=== PATIENT | male | born 1950 | race Caucasian/White ===

== ENCOUNTER 2020-06-08 06:10 | Outpatient (REF) | payer MEDICARE, OTHER, SELFPAY ==
[2020-06-08 07:17] LABS: MANUAL DIFF FLAG NO
[2020-06-08 07:21] LABS: Basophils Percent Auto 0.9 % (0-2); Eosinophils Absolute Auto 0.4 X10*3/uL (0.0-0.4); Eosinophils Percent Auto 8.3 % (0-4); Hematocrit 46.3 % (42-52); Imm Gran Abs Auto 0.01 X10*3/uL (0.00-0.03); Imm Gran Pct Auto 0.2 % (0.0-0.4); Lymphocytes Absolute Auto 1.4 X10*3/uL (1.2-4.9); Lymphocytes Percent Auto 29.8 % (20-40); Mean Corpuscular HGB Conc 32.4 g/dl (31.0-36.0); Mean Corpuscular Hemoglobin 29.2 pg (27.0-33.0); Mean Corpuscular Volume 90.3 fL (80-98); Mean Platelet Volume 10.5 fL (9.4-12.4); Monocytes Absolute Auto 0.6 X10*3/uL (0.1-1.2); Monocytes Percent Auto 13.1 % (2-11); Neutrophils Absolute Auto 2.2 X10*3/uL (2.0-8.3); Neutrophils Percent Auto 47.7 % (45-73); Platelet Count 222 X10*3/uL (160-400); Red Blood Count 5.13 X10*6/uL (4.60-5.80); Red Cell Distribution Width 12.3 % (11.0-16.0); White Blood Count 4.6 X10*3/uL (4.8-10.8)
[2020-06-08 07:49] LABS: Alanine Aminotransferase 19 U/L (0-40); Albumin Level 3.9 g/dL (3.5-5.0); Alkaline Phosphatase 73 U/L (39-117); Anion Gap 10 (12-20); Aspartate Amino Transferase 26 U/L (5-37); Bilirubin Total 0.5 mg/dL (0.0-1.0); Blood Urea Nitrogen 18 mg/dL (9-16); Calcium 8.7 mg/dL (8.4-10.2); Carbon Dioxide 31 mmol/L (22-29); Chloride 102 mmol/L (96-108); Cholesterol 241 mg/dL; Estimated Glomerular Filt Rate > 60; Glucose Fasting 95 mg/dL (60-99); HDL Cholesterol 70 mg/dL; LDL Cholesterol Calculated 160 mg/dl; Potassium 4.3 mmol/L (3.3-5.1); Sodium 139 mmol/L (135-145); Total Protein 6.6 g/dL (6.5-8.0); Triglycerides 56 mg/dL
[2020-06-08 08:12] LABS: Prostate Specific Antigen Scr 2.55 ng/mL (<0.05-4.0)
== END 2020-06-08 06:11 | disposition home or self-care (01) ==
LOC: HO.LAB 06:10
PROVIDERS: Visit Provider Internal Medicine
DX: Z00.00 Encounter for general adult medical examination without abnormal findings (principal); E11.9 Type 2 diabetes mellitus without complications; R35.1 Nocturia
CPT/HCPCS: 36415; 80053; 80061; 84153; 85025

== ENCOUNTER 2021-06-07 06:12 | Outpatient (REF) | payer MEDICARE, OTHER, SELFPAY ==
[2021-06-07 06:30] LABS: MANUAL DIFF FLAG NO
[2021-06-07 07:19] LABS: Basophils Percent Auto 0.8 % (0-2); Eosinophils Absolute Auto 0.4 X10*3/uL (0.0-0.4); Eosinophils Percent Auto 7.9 % (0-4); Hematocrit 44.9 % (42.0-52.0); Hemoglobin 14.6 g/dl (14.0-18.0); Imm Gran Abs Auto 0.01 X10*3/uL (0.00-0.03); Imm Gran Pct Auto 0.2 % (0.0-0.4); Lymphocytes Absolute Auto 1.4 X10*3/uL (1.2-4.9); Lymphocytes Percent Auto 29.3 % (20-40); Mean Corpuscular HGB Conc 32.5 g/dl (31.0-36.0); Mean Corpuscular Hemoglobin 29.2 pg (27.0-33.0); Mean Corpuscular Volume 89.8 fL (80.0-98.0); Mean Platelet Volume 10.7 fL (9.4-12.4); Monocytes Absolute Auto 0.7 X10*3/uL (0.1-1.2); Monocytes Percent Auto 13.8 % (2-11); Neutrophils Absolute Auto 2.3 x10*3/uL (2.0-8.3); Platelet Count 217 X10*3/uL (160-400); Red Cell Distribution Width 12.5 % (11.0-16.0); White Blood Count 4.8 X10*3/uL (4.8-10.8)
[2021-06-07 07:48] LABS: Alanine Aminotransferase 15 U/L (0-40); Albumin Level 3.7 g/dL (3.5-5.0); Alkaline Phosphatase 66 U/L (39-117); Anion Gap 8 (12-20); Aspartate Amino Transferase 23 U/L (5-37); Bilirubin Total 0.6 mg/dL (0.0-1.0); Blood Urea Nitrogen 20 mg/dL (9-16); Calcium 9.1 mg/dL (8.4-10.2); Carbon Dioxide 32 mmol/L (22-29); Chloride 103 mmol/L (96-108); Cholesterol 215 mg/dL; Estimated Glomerular Filt Rate > 60; Glucose Fasting 93 mg/dL (60-99); HDL Cholesterol 55 mg/dL; LDL Cholesterol Calculated 148 mg/dl; Potassium 4.3 mmol/L (3.3-5.1); Sodium 139 mmol/L (135-145); Total Protein 6.2 g/dL (6.5-8.0); Triglycerides 61 mg/dL
[2021-06-07 08:12] LABS: Thyroid Stimulating Hormone 2.31 uIU/mL (0.32-4.0)
== END 2021-06-07 06:13 | disposition home or self-care (01) ==
LOC: HO.LAB 06:12
PROVIDERS: PCP Internal Medicine; Visit Provider Internal Medicine
DX: Z00.00 Encounter for general adult medical examination without abnormal findings (principal); Z13.0 Encounter for screening for diseases of the blood and blood-forming organs and certain disorders involving the immune mechanism; Z12.5 Encounter for screening for malignant neoplasm of prostate
CPT/HCPCS: 36415; 80053; 80061; 84153; 84443; 85025

== ENCOUNTER 2022-05-01 09:08 | Outpatient (REF) | payer MEDICARE, OTHER, SELFPAY ==
--- NOTE | ~2022-05-01 | XR_ITS ---
EXAMINATION: XR CHEST CLINICAL INFORMATION: Cough. COMPARISON: Chest radiograph 06/18/2017. TECHNIQUE: 2 views of the chest were obtained. FINDINGS: Stable appearance of the cardiomediastinal silhouette. Increased focal haziness in the medial right lower lobe abutting the cardiomediastinal silhouette. No pleural effusion or pneumothorax. Stable mild biapical subpleural thickening/scarring. No acute osseous abnormalities. The visualized upper abdomen is within normal limits. XR/XR chest 2V IMPRESSION: Increased focal haziness in the medial right lower lobe which could be related with aspiration or developing pneumonia. Recommend a follow-up examination after treatment to ensure resolution.
== END 2022-05-01 09:09 | disposition home or self-care (01) ==
LOC: HO.XRAY 09:08
PROVIDERS: PCP Internal Medicine; Visit Provider Internal Medicine
DX: R05.9 Cough, unspecified (principal)
CPT/HCPCS: 71046

== ENCOUNTER 2022-06-18 06:02 | Outpatient (REF) | payer MEDICARE, OTHER, SELFPAY ==
[2022-06-18 06:09] LABS: MANUAL DIFF FLAG NO
[2022-06-18 07:44] LABS: Basophils Absolute Auto 0.1 X10*3/uL (0.0-0.2); Basophils Percent Auto 1.4 % (0-2); Eosinophils Absolute Auto 0.5 X10*3/uL (0.0-0.4); Eosinophils Percent Auto 9.3 % (0-4); Hematocrit 46.7 % (42.0-52.0); Hemoglobin 14.7 g/dl (14.0-18.0); Imm Gran Abs Auto 0.01 X10*3/uL (0.00-0.03); Imm Gran Pct Auto 0.2 % (0.0-0.4); Lymphocytes Absolute Auto 1.9 X10*3/uL (1.2-4.9); Mean Corpuscular HGB Conc 31.5 g/dl (31.0-36.0); Mean Corpuscular Hemoglobin 28.5 pg (27.0-33.0); Mean Corpuscular Volume 90.5 fL (80.0-98.0); Mean Platelet Volume 11.1 fL (9.4-12.4); Monocytes Absolute Auto 0.6 X10*3/uL (0.1-1.2); Monocytes Percent Auto 11.1 % (2-11); Neutrophils Absolute Auto 2.2 x10*3/uL (2.0-8.3); Platelet Count 233 X10*3/uL (160-400); Red Blood Count 5.16 X10*6/uL (4.60-5.80); Red Cell Distribution Width 12.8 % (11.0-16.0); White Blood Count 5.1 X10*3/uL (4.8-10.8)
[2022-06-18 08:13] LABS: Alanine Aminotransferase 18 U/L (0-40); Albumin Level 3.6 g/dL (3.5-5.0); Alkaline Phosphatase 81 U/L (39-117); Anion Gap 14 (12-20); Aspartate Amino Transferase 24 U/L (5-37); Bilirubin Total 0.5 mg/dL (0.0-1.0); Blood Urea Nitrogen 21 mg/dL (9-16); Calcium 9.1 mg/dL (8.4-10.2); Carbon Dioxide 30 mmol/L (22-29); Chloride 104 mmol/L (96-108); Cholesterol 226 mg/dL; Estimated Glomerular Filt Rate > 60; Glucose Fasting 91 mg/dL (60-99); HDL Cholesterol 56 mg/dL; LDL Cholesterol Calculated 159 mg/dl; Potassium 4.6 mmol/L (3.3-5.1); Sodium 143 mmol/L (135-145); Total Protein 6.4 g/dL (6.5-8.0); Triglycerides 59 mg/dL
== END 2022-06-18 06:03 | disposition home or self-care (01) ==
LOC: HO.LAB 06:02
PROVIDERS: PCP Internal Medicine; Visit Provider Internal Medicine
DX: N28.9 Disorder of kidney and ureter, unspecified (principal); D64.9 Anemia, unspecified; E78.5 Hyperlipidemia, unspecified
CPT/HCPCS: 36415; 80053; 80061; 85025

== ENCOUNTER 2023-02-06 08:36 | Outpatient (AMB) | payer MEDICARE, OTHER, SELFPAY ==
[2023-02-06 08:40] VITALS: BP 130/70; PULSE 67; O2SAT 98; BMI 18.7
--- NOTE | 2023-02-06 08:40 | MHC.PC.OV ---
Vital Signs 02/06/23 08:40 Height 6 ft 5.1 in Weight 158 lb BMI 18.7 BP 130/70 Blood Pressure Location Lt brachial Position Sitting Pulse 67 Pulse Source Pulse Oximeter Pulse Oximetry (%) 98 Oxygen Delivery Method Room Air Intake Visit Reasons: Ongoing Cough Allergies No Known Allergies Allergy (Verified 02/06/23 08:40) Tobacco use date assessed: 06/01/22 Fall risk assessment: No Falls in past year Last assessed Fall Risk: 02/06/23 Dental Screening Dental Screen Date: 02/06/23 Did you have a dental visit in the last 12 months?: Yes Did you have a dental problem in the last 6 months where you did not have access to dental care?: No Was dental information given to patient?: Patient has dentist HPI Ongoing Cough HPI Details non prod cough PFSH Surgical History History of lumbar laminectomy History of tonsillectomy Family History Father Industrial accident Mother Diabetes Brother No problems noted. Brother No problems noted. Son No problems noted. Daughter No problems noted. Daughter No problems noted. Daughter No problems noted. Social History Housing: House Alcohol intake: current Alcohol intake frequency: a few times a month Patient Tobacco Use Status: Never used Tobacco Tobacco use type: Cigarette e-Cigarette/Vaping Use: Never Used Second Hand Smoke Exposure: No service: No Current occupational status: employed and retired Cognitive needs: No Hearing needs: No Vision needs: Yes Questionnaire PHQ-9 Over the last 2 weeks, how often have you been bothered by any of the following problems? 1. Little interest or pleasure in doing things: not at all 2. Feeling down, depressed, or hopeless: not at all 3. Trouble falling or staying asleep, or sleeping too much: not at all 4. Feeling tired or having little energy: not at all 5. Poor appetite or overeating: not at all 6. Feeling bad about yourself - or that you are a failure or have let yourself or your family down: not at all 7. Trouble concentrating on things, such as reading the newspaper or watching television: not at all 8. Moving or speaking so slowly that other people could have noticed. Or the opposite - being so fidgety or restless that you have been moving around a lot more than usual: not at all 9. Thoughts that you would be better off or of hurting yourself in some way: not at all Total score: 0 Depression Screening Interpretation: Negative Depression Screening Done: Yes 21776 - PHQ-9 Billing: Yes Source: Developed by Drs. Daniel Esquivel, Rita Piña, Skinny Bishop and colleagues, with an educational alis from [employer]. Thrive Questionnaire Date Thrive assessed: 06/07/22 AUDIT C Alcohol Use Questionnaire (AUDIT-C) 1. How often do you have a drink containing alcohol?: Monthly or less 2. How many drinks containing alcohol do you have on a typical day when you are drinking?: 1 or 2 3. How often do you have six or more drinks on one occasion?: Never Total Score: 1 Score Reviewed/Action Taken: Yes ED-7 AMB Questionnaire ED-7 Date ED - 7 assessed: 06/01/22 Source: Developed by Drs. Daniel Esquivel, Rita Piña, Skinny Bishop and colleagues, with an educational alis from [employer]. Review of Systems Const Denies chills, Denies headache(s) and Denies weight loss ENT Denies headache(s) Card Denies chest pain, Denies syncope, Denies irregular heart rhythm and Denies dyspnea Resp Denies chest congestion and Denies dyspnea GI Denies abdominal pain, Denies change in stool character, Denies nausea and Denies vomiting Musc Denies deformity and Denies joint swelling Neuro Denies syncope and Denies headache(s) Physical exam (Primary Care) Vital Signs: Last Vital Signs Pulse 67 02/06/23 08:40 BP 130/70 02/06/23 08:40 Pulse Ox 98 02/06/23 08:40 Oxygen Delivery Method Room Air 02/06/23 08:40 BMI result Body Mass Index 18.7 Tobacco/Smoking Status: Tobacco use Status Tobacco use date assessed 06/01/22 02/06/23 08:44 Patient Tobacco Use Status Never used Tobacco 02/06/23 08:44 Tobacco use type Cigarette 02/06/23 08:44 e-Cigarette/Vaping Use Never Used 02/06/23 08:44 PHQ-9: PHQ-9 Score PHQ-9: Total score 0 02/06/23 08:44 Depression Screening Interpretation: Negative Thrive Assessment: Date of Thrive Assessment Date Thrive assessed 06/07/22 02/06/23 08:44 Const General: cooperative, comfortable, no acute distress and alert Neck Neck: Yes no lymphadenopathy Thyroid: Thyroid normal Resp Effort & Inspection: normal respiratory effort Auscultation: clear to auscultation bilaterally Percussion: percussion normal Cardio Jugular venous distension: no JVD Palpation: normal PMI Rate: regular rate Rhythm: regular rhythm Heart sounds: S1 normal heart sound present and S2 normal heart sound present GI Inspection: Yes normal to inspection Palpation (GI): No hepatosplenomegaly present Skin General skin exam: no rashes or lesions noted Extrem General: Yes no clubbing, cyanosis or edema Assessment and Plan Assessment & Plan (1) Cough: Code(s): R05.9 - Cough, unspecified Plan: rx Medications: Refilled benzonatate 100 mg PO TID PRN 60 caps 0RF cough Coding Level of Care Code Est Pt Level 3 (26711) Diagnoses Cough R05.9
== END 2023-02-06 08:56 | disposition home or self-care (01) ==
PROVIDERS: PCP Internal Medicine; Visit Provider Internal Medicine
DX: R05.9 Cough, unspecified (principal)
CPT/HCPCS: 99213

== ENCOUNTER 2023-05-03 07:23 | Day surgery (SDC) | payer MEDICARE, OTHER, SELFPAY ==
--- NOTE | 2023-05-02 13:20 | HO.ANESPROP2 ---
Documented by User: Candy Barbosa NP 05/02/23 13:21 HPI - Anesthesia Eval Consult details Narrative: 72yo M for Colonoscopy PMFSH Active Problems Active Problems: All Active Problems (Updated 05/02/23 @ 11:45 by Rosana Go RN) Cough (Acute) Encounter for subsequent annual wellness visit (AWV) in Medicare patient (Acute) Physical exam (Acute) Past Medical History Medical History Melanoma Spinal stenosis Family History Family History Father Industrial accident Mother Diabetes Brother No problems noted. Brother No problems noted. Son No problems noted. Daughter No problems noted. Daughter No problems noted. Daughter No problems noted. Surgical History Surgical History Hx of colonoscopy History of lumbar laminectomy History of tonsillectomy Social History Social History Housing: House Alcohol intake: current Alcohol intake frequency: a few times a month Patient Tobacco Use Status: Never used Tobacco Tobacco use type: Cigarette e-Cigarette/Vaping Use: Never Used Second Hand Smoke Exposure: No Are you DNR?: No Advance Directives: No Advance Directives Information Provided: Yes Nutrition Risks: No Nutritional Risk service: No Current occupational status: employed and retired Cognitive needs: No Hearing needs: No Vision needs: Yes Meds Allergies Allergy/AdvReac Type Severity Reaction Status Date / Time No Known Allergies Allergy Verified 05/03/23 07:51 Assessment and Plan Assessment Anesthesia Assessment: Chart Reviewed Documented by User: Rachel Sims MD 05/03/23 08:28 PMFSH Active Problems Active Problems: All Active Problems (Updated 05/03/23 @ 07:59 by Rachel Sims MD Past Medical History Medical History Melanoma Spinal stenosis Family History Family History Father Industrial accident Mother Diabetes Brother No problems noted. Brother No problems noted. Son No problems noted. Daughter No problems noted. Daughter No problems noted. Daughter No problems noted. Family history of problems with anesthesia: No Surgical History Surgical History Hx of colonoscopy History of lumbar laminectomy History of tonsillectomy History of Problems with Anesthesia: No Social History Social History Housing: House Alcohol intake: current Alcohol intake frequency: a few times a month Patient Tobacco Use Status: Never used Tobacco Tobacco use type: Cigarette e-Cigarette/Vaping Use: Never Used Second Hand Smoke Exposure: No Are you DNR?: No Advance Directives: No Advance Directives Information Provided: Yes Nutrition Risks: No Nutritional Risk service: No Current occupational status: employed and retired Cognitive needs: No Hearing needs: No Vision needs: Yes Meds Allergies Allergy/AdvReac Type Severity Reaction Status Date / Time No Known Allergies Allergy Verified 05/03/23 07:51 Exam Height,Weight and Vital Signs: Height 6 ft 2 in Weight 71.849 kg Vital Signs Temp Pulse Resp BP Pulse Ox O2 Del Method 05/03/23 08:25 97.9 F 71 18 156/86 H 100 Room Air Airway Mallampati Class: II TM Dist: >3cm Neck ROM: Full Loose/Missing/Broken Teeth: Yes (Missing 1 tooth top left back. No broken or loose teeth) Heart: RRR Lungs: CTAB Assessment and Plan Assessment Anesthesia Assessment: Anesthesia Plan Discussed Final Anesthetic Review Family History of Problems with Anesthesia: No History of Problems with Anesthesia: No NPO: Yes ASA Class: II Final Preanesthetic Review: No Changes in Pt Med Stat, Meds/Allgs Chart Reviewed, Consent Obtained/Reviewed and Anes Risks/Benef Reviewed Patient Risk: Low Procedure Risk: Low Assessment/Block/Sedation in SS: Assess/Block/Sedation-SS Anesthetic Plan Anesthetic Plan: TIVA Disposition: Standard PACU
[2023-05-03 08:25] VITALS: BP 156/86; PULSE 71; RESP 18; TEMP 36.6; O2SAT 100
[2023-05-03 09:40] VITALS: BP 145/83; PULSE 66; RESP 16; TEMP 36.8; O2SAT 98
--- NOTE | 2023-05-03 09:44 | PM.OP ---
Brief Operative Note Date of Service: 05/03/23 Pre-op diagnosis: Screening Post-op diagnosis: other (Diverticulosis) Procedure: Colonoscopy to the cecum and TI Surgeon: Daniel Marie MD Anesthesia: MAC Was an Marketing Segment Manager used for this Procedure?: No Estimated blood loss (mL): 0 Pathology: none sent Condition: stable Disposition: PACU
[2023-05-03 09:55] VITALS: BP 153/85; PULSE 73; RESP 16; O2SAT 98
[2023-05-03 10:10] VITALS: BP 151/81; PULSE 61; RESP 18; TEMP 36.3; O2SAT 100
--- NOTE | 2023-05-03 10:35 | OP_ITS ---
DATE OF SERVICE: 05/03/2023 SURGEON: Daniel Marie MD INDICATIONS: The patient presents for evaluation of colorectal cancer screening. Full consent has been obtained from him for this, including risks of bleeding and perforation. PREOPERATIVE DIAGNOSIS: Colorectal cancer screening. POSTOPERATIVE DIAGNOSIS: PROCEDURE PERFORMED: Colonoscopy to the cecum and terminal ileum. ESTIMATED BLOOD LOSS: COMPLICATIONS: ANESTHESIA: Monitored anesthesia care. ASSISTANTS: SPECIMENS: POSTOPERATIVE DIAGNOSES: Colorectal cancer screening, diverticulosis, and internal hemorrhoids. DESCRIPTION OF PROCEDURE: The patient was placed in the left lateral decubitus position. The digital rectal exam revealed no abnormalities. The Olympus video pediatric colonoscope was entered into the rectum and advanced easily to the cecum. Once in the cecum, I did identify normal-appearing cecal pouch with appendiceal orifice and a normal-appearing ileocecal valve. The terminal ileum was cannulated and appeared normal. The scope was withdrawn back in the colon. The entire cecum and ileocecal valve appeared normal. The scope was slowly withdrawn assessing all mucosal surfaces carefully. Preparation was excellent. I did not visualize any sign of polyps, colitis, nor angiodysplasia. There was a mild amount of sigmoid diverticulosis. In the rectum, scope was retroflexed visualizing small internal hemorrhoids but no other pathology. The rectal mucosa appeared normal. The scope was straightened and withdrawn from the patient. He tolerated the procedure well and was returned to the recovery area in stable condition. IMPRESSION: 1. Diverticulosis. 2. Internal hemorrhoids. PLAN: Given today's negative exam and his age as well as no family history of colorectal cancer, I do not think he would need any further screening colonoscopies. He was advised to see me again on a p.r.n. basis. MD VALERIA Barone/WILFRIDO / [phone]
== END 2023-05-03 10:30 | disposition home or self-care (01) ==
PROVIDERS: PCP Internal Medicine; Visit Provider Internal Medicine
PROC: 0DJD8ZZ Inspection of Lower Intestinal Tract, Via Natural or Artificial Opening Endoscopic (ICD-10-PCS; CPT 45378; principal; 2023-05-03 08:30)
DX: Z12.11 Encounter for screening for malignant neoplasm of colon (principal); K57.30 Diverticulosis of large intestine without perforation or abscess without bleeding; K64.8 Other hemorrhoids; Z85.820 Personal history of malignant melanoma of skin; Z79.899 Other long term (current) drug therapy; Z98.890 Other specified postprocedural states
CPT/HCPCS: G0121; J2704

== ENCOUNTER 2023-06-20 08:51 | Outpatient (AMB) | payer MEDICARE, OTHER, SELFPAY ==
[2023-06-20 08:53] VITALS: BP 132/80; PULSE 67; O2SAT 98; BMI 21.4
--- NOTE | 2023-06-20 08:53 | MHC.PC.OV ---
Vital Signs 06/20/23 08:53 Height 6 ft 0.44 in Weight 160 lb BMI 21.4 BP 132/80 Blood Pressure Location Lt brachial Position Sitting Pulse 67 Pulse Source Pulse Oximeter Pulse Oximetry (%) 98 Oxygen Delivery Method Room Air Intake Visit Reasons: PE Lens Molder Required: No Balling Machine Operator: Not Required per policy Accompanied by: Self / Same As Patient Allergies No Known Allergies Allergy (Verified 06/20/23 08:54) Tobacco use date assessed: 06/20/23 Fall risk assessment: No Falls in past year Last assessed Fall Risk: 06/20/23 Dental Screening Dental Screen Date: 06/20/23 Did you have a dental visit in the last 12 months?: Yes Did you have a dental problem in the last 6 months where you did not have access to dental care?: No Was dental information given to patient?: Patient has dentist HPI PE HPI Details healthy [facility] Medical History Melanoma Spinal stenosis Surgical History Hx of colonoscopy History of lumbar laminectomy History of tonsillectomy Family History Father Industrial accident Mother Diabetes Brother No problems noted. Brother No problems noted. Son No problems noted. Daughter No problems noted. Daughter No problems noted. Daughter No problems noted. Social History Housing: House Alcohol intake: current Alcohol intake frequency: a few times a month Patient Tobacco Use Status: Never used Tobacco Tobacco use type: Cigarette e-Cigarette/Vaping Use: Never Used Second Hand Smoke Exposure: No service: No Current occupational status: employed and retired Cognitive needs: No Hearing needs: No Vision needs: Yes Questionnaire PHQ-9 Over the last 2 weeks, how often have you been bothered by any of the following problems? 1. Little interest or pleasure in doing things: not at all 2. Feeling down, depressed, or hopeless: not at all 3. Trouble falling or staying asleep, or sleeping too much: not at all 4. Feeling tired or having little energy: not at all 5. Poor appetite or overeating: not at all 6. Feeling bad about yourself - or that you are a failure or have let yourself or your family down: not at all 7. Trouble concentrating on things, such as reading the newspaper or watching television: not at all 8. Moving or speaking so slowly that other people could have noticed. Or the opposite - being so fidgety or restless that you have been moving around a lot more than usual: not at all 9. Thoughts that you would be better off or of hurting yourself in some way: not at all Total score: 0 Depression Screening Interpretation: Negative Depression Screening Done: Yes 30025 - PHQ-9 Billing: Yes Source: Developed by Drs. Daniel Esquivel, Rita Piña, Skinny Bishop and colleagues, with an educational alis from [employer]. Thrive Questionnaire Date Thrive assessed: 06/20/23 I am a: Patient What is your living situation today?: I have a steady place to live Within the past 12 months, did the food you bought not last and you didn't have the money to get more?: Never true Within the past 12 months, did you worry whether your food would run out before you got money to buy more?: Never true Do you have trouble paying for medicines?: No Do you have trouble getting transportation to medical appointments?: No Do you have trouble paying your heating and electricity bill?: No Do you have trouble taking care of your child, family member or friend?: No Do you have trouble with day-to-day activities such as bathing, preparing meals, shopping, managing finances, etc.?: No Are you currently unemployed and looking for a job?: No Are you interested in more education?: No Please select the resources that you would like help with: None THRIVE Score: 0 AUDIT C Alcohol Use Questionnaire (AUDIT-C) 1. How often do you have a drink containing alcohol?: Monthly or less 2. How many drinks containing alcohol do you have on a typical day when you are drinking?: 1 or 2 3. How often do you have six or more drinks on one occasion?: Never Total Score: 1 Score Reviewed/Action Taken: Yes ED-7 AMB Questionnaire ED-7 Date ED - 7 assessed: 06/20/23 Feeling nervous, anxious, or on edge: 0 = Not at all Not being able to stop or control worryin = Not at all Worrying too much about different things: 0 = Not at all Trouble relaxin = Not at all Being so restless that it is hard to sit still: 0 = Not at all Becoming easily annoyed or irritable: 0 = Not at all Feeling afraid as if something awful might happen: 0 = Not at all Total ED-7 score (0-4 normal; 5-9 mild; 10-14 moderate; 15-21 severe): 0 Source: Developed by Drs. Daniel Esquivel, Rita Piña, Skinny Bishop and colleagues, with an educational alis from [employer]. ED-7 Assessment Billing ED-7 Assessment Tool: ED-7 Assessment 42118 Review of Systems Const Denies chills, Denies fatigue, Denies headache(s) and Denies weight loss Eyes Denies change in vision, Denies diplopia and Denies eye pain ENT Denies vertigo, Denies dizziness, Denies headache(s) and Denies nasal discharge Card Denies chest pain, Denies rapid heart rate and Denies dyspnea on exertion Resp Denies chest congestion, Denies cough, Denies pain with cough and Denies dyspnea on exertion GI Denies abdominal pain, Denies hematochezia and Denies change in bowel habits Musc Denies myalgias, Denies arthralgias and Denies joint swelling Skin/Breast Denies lesions and Denies unusual bruising Neuro Denies vertigo, Denies dizziness, Denies headache(s) and Denies focal weakness Endo Denies fatigue Physical exam (Primary Care) Vital Signs: Last Vital Signs Pulse 67 06/20/23 08:53 BP 132/80 06/20/23 08:53 Pulse Ox 98 06/20/23 08:53 Oxygen Delivery Method Room Air 06/20/23 08:53 BMI result Body Mass Index 21.4 Tobacco/Smoking Status: Tobacco use Status Tobacco use date assessed 06/20/23 06/20/23 08:54 Patient Tobacco Use Status Never used Tobacco 06/20/23 08:54 Tobacco use type Cigarette 06/20/23 08:54 e-Cigarette/Vaping Use Never Used 06/20/23 08:54 PHQ-9: PHQ-9 Score PHQ-9: Total score 0 06/20/23 09:00 Depression Screening Interpretation: Negative Thrive Assessment: Date of Thrive Assessment Date Thrive assessed 06/20/23 06/20/23 09:00 Const General: cooperative, healthy appearing and no acute distress Orientation/consciousness: oriented to person, oriented to place and oriented to time HENMT Head: Yes normal to inspection, Yes normocephalic and Yes atraumatic Mouth: Normal oral and palatal mucosa present and tongue normal Throat: Yes posterior oropharynx normal and Yes uvula midline Eyes General: appearance normal, both eyes and all related structures Neck Neck: Yes normal visual inspection, Yes full ROM and Yes no lymphadenopathy Thyroid: Thyroid normal Carotids: normal carotid upstroke Chest Chest palpation & inspection: normal inspection of the chest Resp Effort & Inspection: normal respiratory effort and able to speak in complete sentences Auscultation: clear to auscultation bilaterally Cardio Jugular venous distension: no JVD Palpation: normal PMI Rate: regular rate Rhythm: regular rhythm Heart sounds: S1 normal heart sound present and S2 normal heart sound present GI Inspection: Yes normal to inspection Palpation (GI): Soft to palpation and No hepatosplenomegaly present Auscultation: normal bowel sounds General: Yes no CVA tenderness Back/Spine/Pelvis Back: no CVA tenderness Skin General skin exam: no rashes or lesions noted Neuro General: oriented to person, oriented to place and oriented to time Extrem General: Yes normal to inspection and Yes full ROM Assessment and Plan Assessment & Plan (1) Physical exam: Code(s): Z00.00 - Encounter for general adult medical examination without abnormal findings Plan: healthy; do labs Orders: Orders Complete Blood Count Auto Diff Today D64.9 - Anemia, unspecified Comprehensive [place]. Panel Fast Today N28.9 - Disorder of kidney and ureter, unspecified Lipid Panel Today E78.5 - Hyperlipidemia, unspecified Thyroid Stimulating Hormone Today E03.9 - Hypothyroidism, unspecified Coding Level of Care Code Est Pt Prev Care >65y(22552) Diagnoses Physical exam Z00.00 Additional Codes ED-7 Assessment Billing - ED-7 Assessment Tool: ED-7 Assessment 01031 ([id number])
== END 2023-06-20 09:17 | disposition home or self-care (01) ==
PROVIDERS: PCP Internal Medicine; Visit Provider Internal Medicine
DX: Z00.00 Encounter for general adult medical examination without abnormal findings (principal)
CPT/HCPCS: 99397

== ENCOUNTER 2023-06-28 06:02 | Outpatient (REF) | payer MEDICARE, OTHER, SELFPAY ==
[2023-06-28 06:18] LABS: MANUAL DIFF FLAG NO
[2023-06-28 08:08] LABS: Basophils Absolute Auto 0.1 X10*3/uL (0.0-0.2); Basophils Percent Auto 1.3 % (0-2); Eosinophils Absolute Auto 0.5 X10*3/uL (0.0-0.4); Hematocrit 44.7 % (42.0-52.0); Hemoglobin 14.6 g/dl (14.0-18.0); Imm Gran Abs Auto 0.01 X10*3/uL (0.00-0.03); Imm Gran Pct Auto 0.2 % (0.0-0.4); Lymphocytes Absolute Auto 1.6 X10*3/uL (1.2-4.9); Mean Corpuscular HGB Conc 32.7 g/dl (31.0-36.0); Mean Corpuscular Hemoglobin 29.3 pg (27.0-33.0); Mean Corpuscular Volume 89.6 fL (80.0-98.0); Mean Platelet Volume 10.9 fL (9.4-12.4); Monocytes Absolute Auto 0.6 X10*3/uL (0.1-1.2); Monocytes Percent Auto 11.7 % (2-11); Neutrophils Absolute Auto 2.5 x10*3/uL (2.0-8.3); Neutrophils Percent Auto 46.8 % (45-73); Platelet Count 224 X10*3/uL (160-400); Red Blood Count 4.99 X10*6/uL (4.60-5.80); Red Cell Distribution Width 12.8 % (11.0-16.0); White Blood Count 5.2 X10*3/uL (4.8-10.8)
[2023-06-28 09:03] LABS: Alanine Aminotransferase 16 U/L (0-40); Albumin Level 3.7 g/dL (3.5-5.0); Alkaline Phosphatase 79 U/L (39-117); Anion Gap 10 (12-20); Aspartate Amino Transferase 24 U/L (5-37); Bilirubin Total 0.6 mg/dL (0.0-1.0); Blood Urea Nitrogen 20 mg/dL (9-16); Calcium 9.1 mg/dL (8.4-10.2); Carbon Dioxide 30 mmol/L (22-29); Chloride 106 mmol/L (96-108); Cholesterol 205 mg/dL (<200); Estimated Glomerular Filt Rate > 60; Glucose Fasting 86 mg/dL (60-99); HDL Cholesterol 58 mg/dL (>40); LDL Cholesterol Calculated 134 mg/dL (<100); Potassium 4.3 mmol/L (3.3-5.1); Sodium 142 mmol/L (135-145); Total Protein 6.8 g/dL (6.5-8.0); Triglycerides 68 mg/dL (<150)
[2023-06-28 09:14] LABS: Thyroid Stimulating Hormone 2.37 uIU/mL (0.32-4.0)
== END 2023-06-28 06:03 | disposition home or self-care (01) ==
LOC: HO.LAB 06:02
PROVIDERS: PCP Internal Medicine; Visit Provider Internal Medicine
DX: N28.9 Disorder of kidney and ureter, unspecified (principal); E03.9 Hypothyroidism, unspecified; D64.9 Anemia, unspecified; E78.5 Hyperlipidemia, unspecified
CPT/HCPCS: 36415; 80053; 80061; 84443; 85025

== ENCOUNTER 2024-05-01 11:01 | Outpatient (AMB) | payer MEDICARE, OTHER, SELFPAY ==
--- NOTE | 2024-05-01 11:06 | MHC.PC.OV ---
Vital Signs 05/01/24 11:08 Height 6 ft 0.44 in Weight 156 lb 6 oz BMI 20.9 BP 140/62 H Blood Pressure Location Lt brachial Position Sitting Pulse 60 Pulse Source Pulse Oximeter Pulse Oximetry (%) 100 Oxygen Delivery Method Room Air Intake Visit Reasons: preop-see comm Intake Note: Patient is here for a Pre-op for Cataract surgery scheduled with Dr Daniels on left is 05/11, right 05/25. Operations Tech Required: No Visitor Services Information Assistant: Not Required per policy Accompanied by: Self / Same As Patient Allergies No Known Allergies Allergy (Verified 05/01/24 11:08) Medication List - Last Reconciled 05/01/24 by Bon Ha MD amitriptyline 25 mg PO DAILY Tobacco use date assessed: 05/01/24 Fall risk assessment: No Falls in past year Last assessed Fall Risk: 05/01/24 Dental Screening Dental Screen Date: 05/01/24 Did you have a dental visit in the last 12 months?: Yes Did you have a dental problem in the last 6 months where you did not have access to dental care?: No Was dental information given to patient?: Patient has dentist HPI preop-see comm HPI Details having cataracts repaired; healthy; no history of CAD PFSH Medical History Melanoma Spinal stenosis Surgical History Hx of colonoscopy History of lumbar laminectomy History of tonsillectomy Family History (Updated 05/01/24 @ 11:13 by SOURAV Rice) Father Industrial accident Mother Diabetes Brother No problems noted. Brother No problems noted. Son No problems noted. Daughter No problems noted. Daughter No problems noted. Daughter No problems noted. Social History Housing: House Alcohol intake: current Alcohol intake frequency: a few times a month Patient Tobacco Use Status: Never used Tobacco Tobacco use type: Cigarette e-Cigarette/Vaping Use: Never Used Second Hand Smoke Exposure: No service: No Current occupational status: employed and retired Cognitive needs: No Hearing needs: No Vision needs: Yes Questionnaire PHQ-9 Over the last 2 weeks, how often have you been bothered by any of the following problems? 1. Little interest or pleasure in doing things: not at all 2. Feeling down, depressed, or hopeless: not at all 3. Trouble falling or staying asleep, or sleeping too much: not at all 4. Feeling tired or having little energy: not at all 5. Poor appetite or overeating: not at all 6. Feeling bad about yourself - or that you are a failure or have let yourself or your family down: not at all 7. Trouble concentrating on things, such as reading the newspaper or watching television: not at all 8. Moving or speaking so slowly that other people could have noticed. Or the opposite - being so fidgety or restless that you have been moving around a lot more than usual: not at all 9. Thoughts that you would be better off or of hurting yourself in some way: not at all Total score: 0 Depression Screening Interpretation: Negative Depression Screening Done: Yes Source: Developed by Drs. Daniel Esquivel, Rita Piña, Skinny Bishop and colleagues, with an educational alis from [employer] ([employer]). Thrive Questionnaire Date Thrive assessed: 05/01/24 I am a: Patient What is your living situation today?: I have a steady place to live Within the past 12 months, did the food you bought not last and you didn't have the money to get more?: Never true Within the past 12 months, did you worry whether your food would run out before you got money to buy more?: Never true Do you have trouble paying for medicines?: No Do you have trouble getting transportation to medical appointments?: No Do you have trouble paying your heating and electricity bill?: No Do you have trouble taking care of your child, family member or friend?: No Do you have trouble with day-to-day activities such as bathing, preparing meals, shopping, managing finances, etc.?: No Are you currently unemployed and looking for a job?: No Are you interested in more education?: No Currently or been in a relationship where the following occur: No concerns reported THRIVE Score: 0 AUDIT C Alcohol Use Questionnaire (AUDIT-C) 1. How often do you have a drink containing alcohol?: Monthly or less 2. How many drinks containing alcohol do you have on a typical day when you are drinking?: 1 or 2 3. How often do you have six or more drinks on one occasion?: Never Total Score: 1 ED-7 AMB Questionnaire ED-7 Date ED - 7 assessed: 05/01/24 Feeling nervous, anxious, or on edge: 0 = Not at all Not being able to stop or control worryin = Not at all Worrying too much about different things: 0 = Not at all Trouble relaxin = Not at all Being so restless that it is hard to sit still: 0 = Not at all Becoming easily annoyed or irritable: 0 = Not at all Feeling afraid as if something awful might happen: 0 = Not at all Total ED-7 score (0-4 normal; 5-9 mild; 10-14 moderate; 15-21 severe): 0 Source: Developed by Drs. Daniel Esquivel, Rita Piña, Skinny Bishop and colleagues, with an educational alis from [employer] ([employer]). Review of Systems Const Denies chills, Denies fatigue, Denies headache(s) and Denies weight loss Eyes Denies change in vision, Denies diplopia and Denies eye pain ENT Denies vertigo, Denies dizziness, Denies headache(s) and Denies nasal discharge Card Denies chest pain, Denies rapid heart rate and Denies dyspnea on exertion Resp Denies chest congestion, Denies cough, Denies pain with cough and Denies dyspnea on exertion GI Denies abdominal pain, Denies hematochezia and Denies change in bowel habits Musc Denies myalgias, Denies arthralgias and Denies joint swelling Skin/Breast Denies lesions and Denies unusual bruising Neuro Denies vertigo, Denies dizziness, Denies headache(s) and Denies focal weakness Endo Denies fatigue Physical exam (Primary Care) Vital Signs: Last Vital Signs Pulse 60 05/01/24 11:08 BP 140/62 H 05/01/24 11:08 Pulse Ox 100 05/01/24 11:08 Oxygen Delivery Method Room Air 05/01/24 11:08 BMI result Body Mass Index 20.9 Tobacco/Smoking Status: Tobacco use Status Tobacco use date assessed 05/01/24 05/01/24 11:14 Patient Tobacco Use Status Never used Tobacco 05/01/24 11:14 Tobacco use type Cigarette 05/01/24 11:14 e-Cigarette/Vaping Use Never Used 05/01/24 11:14 PHQ-9: PHQ-9 Score PHQ-9: Total score 0 05/01/24 11:14 Depression Screening Interpretation: Negative Thrive Assessment: Date of Thrive Assessment Date Thrive assessed 05/01/24 05/01/24 11:14 Currently or been in a relationship where the following occur: No concerns reported Const General: cooperative, healthy appearing and no acute distress Orientation/consciousness: oriented to person, oriented to place and oriented to time HENMT Head: Yes normal to inspection, Yes normocephalic and Yes atraumatic Mouth: Normal oral and palatal mucosa present and tongue normal Throat: Yes posterior oropharynx normal and Yes uvula midline Eyes General: appearance normal, both eyes and all related structures Neck Neck: Yes normal visual inspection, Yes full ROM and Yes no lymphadenopathy Thyroid: Thyroid normal Carotids: normal carotid upstroke Chest Chest palpation & inspection: normal inspection of the chest Resp Effort & Inspection: normal respiratory effort and able to speak in complete sentences Auscultation: clear to auscultation bilaterally Cardio Jugular venous distension: no JVD Palpation: normal PMI Rate: regular rate Rhythm: regular rhythm Heart sounds: S1 normal heart sound present and S2 normal heart sound present GI Inspection: Yes normal to inspection Palpation (GI): Soft to palpation and No hepatosplenomegaly present Auscultation: normal bowel sounds General: Yes no CVA tenderness Back/Spine/Pelvis Back: no CVA tenderness Skin General skin exam: no rashes or lesions noted Neuro General: oriented to person, oriented to place and oriented to time Extrem General: Yes normal to inspection and Yes full ROM Coding Level of Care Code Est Pt Level 4 (11021) Diagnoses Preop exam for internal medicine Z01.818 Assessment & Plan Assessment & Plan (1) Preop exam for internal medicine: Code(s): Z01.818 - Encounter for other preprocedural examination Category: Medical Plan: low risk of cardiovascular complications; cleared for surgery
[2024-05-01 11:08] VITALS: BP 140/62; PULSE 60; O2SAT 100; BMI 20.9
--- OUTSIDE RECORDS SUMMARY | 2024-05-01 12:51 | XMS_ITS ---
Author Organization [facility] Address [address] [place] [address] Care Team Providers Care Security Tester Name Role Phone Bon Ha MD Primary Care Provider Unavaila Daniel Gonzalez Unavailable [phone] REASON FOR VISIT screening PROBLEMS Problem Type ICD Code Onset Dates Problem Status W/U Status Risk SNOMED Code Notes Problem Diverticulosis of large intestine without perforation or abscess without bleeding (K57.30) Active confirmed Diverticul ar disease of colon (888903010) Encounters Encounter Location Date Provider [place] [facility] [place] [address] [place] [phone] 05/03/2023 Daniel Marie Encounter for scre ening colonoscopy Z12.11 ; Diverticulosis of large intestine without perforation or abscess without bleeding K57.30 and Other hemorrhoids K64.8 ASSESSMENTS Encounter Date Diagnosis Assessment Notes Treatment Notes Treatment Clinical Notes 05/03/2023 Encounter for screening colonoscopy (ICD-10 - Z12.11) 05/03/2023 Diverticulosis of large intestine without perforation or abscess without bleeding (ICD-10 - K57.30) 05/03/2023 Other hemorrhoids (ICD-10 - K64.8) PLAN OF TREATMENT No Information
--- OUTSIDE RECORDS SUMMARY | 2024-05-01 12:52 | XMS_ITS | Patient Health Record ---
Author Organization [facility] Address [address] [place] [phone] Care Team Providers Care Indigo Vat Tender Cloth Name Role Phone Bon Ha MD Primary Care Provider Ositoa Daniel Gonzalez Unavailable [phone] ALLERGIES No Known Allergies REASON FOR REFERRAL No Information MEDICATIONS Medication SIG (Take, Route, Frequency, Duration) Notes Start Date End Date Status Multi Vitamin - 1 tablet Orally Once a day for 30 day(s) 01/24/2023 Active Vitamin D-3 25 MCG (1000 UT) 1 capsule O rally Once a day for 30 day(s) 01/24/2023 Active Biotin 5000 01/24/2023 Active Amitriptyline HCl 25 MG Oral for 90 Active IMMUNIZATIONS Vaccine Route Administration Date Status Comme nts Influenza Unknown 02/13/2022 Administered SOCIAL HISTORY Sex Assigned At : Social History Observation Description Sex Assigned At Unknown Alcohol Screen Question Answer Notes Did you have a drink contain ing alcohol in the past year? Yes How often did you have a dri nk containing alcohol in the past year? Monthly or less (1 point) How many drinks did you have on a typical day when you were drinking in the past year? 1 or 2 drinks (0 point) How often did you have 6 or more drinks on one occasion in the past year? Never (0 point) Points 1 Interpretation Negative PROBLEMS Problem Type ICD Code Onset Dates Problem Status W/U Status Risk SNOMED Code Notes Problem Colon cancer screening (Z12.11) Active confirmed 999074612 Problem Diverticulosis of large intestine without perforation or abscess without bleeding (K57.30) Active confirmed Diverticul ar disease of colon (630364311) Problem Preprocedural examination (Z01.818) Active confirmed [id number] Encounters Encounter Location Date Provider Diagnosis [facility] [place] [address], [place] [phone] 05/03/2023 Daniel Marie Encounter for scre ening [...] hemorrhoids (ICD-10 - K64.8) PLAN OF TREATMENT Pending Test Test Name Order Date ENDOMYSIAL IGA 01/10/2012 TRANSGLUTAMINASE AB IGA 01/10/2012 TRANSGLUTAMINASE AB IGG 01/10/2012 Future Test Test Name Order Date UPPER GI ENDOSCOPY 06/19/2012 COLONOSCOPY 01/24/2023 Insurance Providers Payer Name Payer Address Payer Phone Subscriber Number Group Number Insured Name Patient Relationship to Insured Coverage Start Date Coverage End Date MEDICARE OF [place] [address] [place] [address] [phone] [id number] MEAGHAN YE Self - patient is the insured [facility] [employer] [address] [place] [address] [id number] MEAGHAN YE Self - patient is the insured MEDICAL (GENERAL) HISTORY Medical History History ICD Code Diverticulosis, with a history of divert iculitis in 2006. Denies CO,DM,CVA,Lung disease,renal dise ase Neg. screening colonoscopy in 2000 and i n 02/2012-diverticulosis Negative lab work for celiac disease in 2011 EGD 2012 with minimal HH and benign gloria sourav polyp Surgical History Surgery Date(Month/Year) Spinal stenosis Melanoma in left forearm 2014
--- OUTSIDE RECORDS SUMMARY | 2024-05-01 12:52 | XMS_ITS ---
Author Organization [facility] Address [address] [place] [address] Care Team Providers Care Customer Care Representative Name Role Phone Bon Ha MD Primary Care Provider Daniel Locke Unavailable [phone] ALLERGIES No Known Allergies REASON FOR VISIT Patient presents today for colon screening MEDICATIONS Medication SIG (Take, Route, Frequency, Duration) Notes Start Date End Date Status Multi Vitamin - 1 tablet Orally Once a day for 30 day(s) 01/24/2023 Active Vitamin D-3 25 MCG (1000 UT) 1 capsule O rally Once a day for 30 day(s) 01/24/2023 Active Biotin 5000 01/24/2023 Active Amitriptyline HCl 25 MG Oral for 90 Active SOCIAL HISTORY Sex Assigned At : Social [...] Problem Colon cancer screening (Z12.11) Active confirmed 236767356 Problem Preprocedural examination (Z01.818) Active confirmed [id number] VITAL SIGNS BMI 21.18 kg/m2 01/24/2023 Blood pressure systolic 000 mm Hg 01/25/20 23 Blood pressure diastolic 00 mm Hg 023 Height 74 in 01/24/2023 Temperature 97.5 degrees Fahrenheit 01/25/20 23 Weight 165 lbs 01/24/2023 Encounters Encounter Location Date Provider Diagnosis [facility] [address] [place] [address] 01/24/2023 Daniel Marie Colon cancer screeni ng Z12.11 and Preprocedural examination Z01.818 ASSESSMENTS Encounter Date Diagnosis Assessment Notes Treatment Notes Treatment Clinical Notes 01/24/2023 Colon cancer screening (ICD-10 - Z12.11) 01/24/2023 Preprocedural examination (ICD-10 - Z01.818) PLAN OF TREATMENT Future Test Test Name Order Date COLONOSCOPY 01/24/2023 Next Appt Details Follow Up: prn, Reason: Progress Notes * Examination Category Sub-Category Detail Notes General Examination GENERAL APPEARANCE: pleasant , well nourished, well developed, in no acute distress EYES: sclera non-icteric NECK/THYROID: no cervical lymphade nopathy, neck supple HEART: S1, S2 normal LUNGS: clear to auscultatio n bilaterally ABDOMEN: normal bowel sounds, no guarding or rigidity, no hepatosplenomegaly, no masses palpable, soft, nontender, nondistended. NEUROLOGIC: alert and oriented SKIN: nonjaundiced, no spi ulises angiomata. EXTREMITIES: no edema ORAL CAVITY: mucosa moist
== END 2024-05-01 11:32 | disposition home or self-care (01) ==
PROVIDERS: PCP Internal Medicine; Visit Provider Internal Medicine
DX: Z01.818 Encounter for other preprocedural examination (principal)

== ENCOUNTER → 2024-05-01 11:01 | Outpatient (BNVA) | payer MEDICARE, OTHER, SELFPAY | PROVIDERS: PCP Internal Medicine; Visit Provider Internal Medicine | DX: Z01.818 Encounter for other preprocedural examination (principal) | CPT/HCPCS: 96127; 99212 ==

== ENCOUNTER 2024-05-11 08:27 | Day surgery (SDC) | payer MEDICARE, OTHER, SELFPAY ==
[2024-05-04 14:47] VITALS: BMI 20.9
--- NOTE | 2024-05-07 14:45 | P.CONAN_ITS ---
Documented by User: Candy Barbosa NP 05/07/24 14:46 HPI - Anesthesia Eval Consult details Narrative: 73yo M for Right Cataract Extraction IOL Insertion No previous cataract on record PMFSH Active Problems Active Problems: All Active Problems Preop exam for internal medicine (Acute) Cough (Acute) Encounter for subsequent annual wellness visit (AWV) in Medicare patient (Acute) Physical exam (Acute) Past Medical History Medical History Melanoma Spinal stenosis Family History Family History Father Industrial accident Mother Diabetes Brother No problems noted. Brother No problems noted. Son No problems noted. Daughter No problems noted. Daughter No problems noted. Daughter No problems noted. Family history of problems with anesthesia: No Surgical History Surgical History Hx of colonoscopy History of lumbar laminectomy History of tonsillectomy History of Problems with Anesthesia: No Social History Social History Housing: House Alcohol intake: current Alcohol intake frequency: a few times a month Patient Tobacco Use Status: Never used Tobacco Tobacco use type: Cigarette e-Cigarette/Vaping Use: Never Used Second Hand Smoke Exposure: No Use of substances other than those prescribed or required for medical reasons: No Baptism Healthcare Practices: Lutheran Advance Directives Information Provided: Yes (as above noted) Advance Directives on File: No service: No Current occupational status: employed and retired Cognitive needs: No Hearing needs: No Vision needs: Yes Meds Allergies Allergy/AdvReac Type Severity Reaction Status Date / Time No Known Allergies Allergy Verified 05/01/24 11:08 Exam Height,Weight and Vital Signs: Height 6 ft 0.44 in Weight 70.931 kg Assessment and Plan Assessment Anesthesia Assessment: Chart Reviewed Final Anesthetic Review Family History of Problems with Anesthesia: No History of Problems with Anesthesia: No Documented by User: Rachel Sims MD 05/11/24 11:05 [facility] Past Medical History Medical History Melanoma Spinal stenosis Family History Family History Father Industrial accident Mother Diabetes Brother No problems noted. Brother No problems noted. Son No problems noted. Daughter No problems noted. Daughter No problems noted. Daughter No problems noted. Family history of problems with anesthesia: No Surgical History Surgical History Hx of colonoscopy History of lumbar laminectomy History of tonsillectomy History of Problems with Anesthesia: No Social History Social History Housing: House Alcohol intake: current Alcohol intake frequency: a few times a month Patient Tobacco Use Status: Never used Tobacco Tobacco use type: Cigarette e-Cigarette/Vaping Use: Never Used Second Hand Smoke Exposure: No Use of substances other than those prescribed or required for medical reasons: No Baptism Healthcare Practices: Lutheran Advance Directives Information Provided: Yes (as above noted) Advance Directives on File: No service: No Current occupational status: employed and retired Cognitive needs: No Hearing needs: No Vision needs: Yes Meds Allergies Allergy/AdvReac Type Severity Reaction Status Date / Time No Known Allergies Allergy Verified 05/01/24 11:08 Exam Height,Weight and Vital Signs: Height 6 ft 0.44 in Weight 70.931 kg Vital Signs Temp Pulse Resp BP Pulse Ox O2 Del Method 05/11/24 10:21 97.7 F 64 16 163/82 H 100 Room Air Airway Mallampati Class: II TM Dist: >3cm Neck ROM: Full Loose/Missing/Broken Teeth: Yes (Missing tooth top left back. Denies broken or loose teeth) Heart: RRR Lungs: CTAB Assessment and Plan Assessment Anesthesia Assessment: Anesthesia Plan Discussed and Chart Reviewed Final Anesthetic Review Family History of Problems with Anesthesia: No History of Problems with Anesthesia: No NPO: Yes ASA Class: II Final Preanesthetic Review: No Changes in Pt Med Stat, Meds/Allgs Chart Reviewed, Consent Obtained/Reviewed and Anes Risks/Benef Reviewed Patient Risk: Low Procedure Risk: Low Assessment/Block/Sedation in SS: Assess/Block/Sedation-SS Anesthetic Plan Anesthetic Plan: MAC: Disposition: Standard PACU
--- OUTSIDE RECORDS SUMMARY | 2024-05-11 08:43 | XMS_ITS ---
Author Organization [facility] Address [address] [place] [address] Care Team Providers Care Jewelry Making Instructor Name Role Phone Bon Ha MD Primary Care Provider Unavaila Daniel Gonzalez Unavailable [phone] REASON FOR VISIT screening PROBLEMS Problem Type ICD Code Onset Dates Problem Status W/U Status Risk SNOMED Code Notes Problem Diverticulosis of large intestine without perforation or abscess without bleeding (K57.30) Active confirmed Diverticul ar disease of colon (090789306) Encounters Encounter Location Date Provider Diagnosis [facility] [place] [address] [place] [phone] 05/03/2023 Daniel Marie Encounter for scre ening [...]
--- OUTSIDE RECORDS SUMMARY | 2024-05-11 08:43 | XMS_ITS | Patient Health Record ---
Author Organization [facility] Address [address] [place] [address] Care Team Providers Care Corporate Human Resources Manager Name Role Phone Bon Ha MD Primary Care Provider Ositoa Daniel Gonzalez Unavailable [phone] ALLERGIES No Known Allergies REASON FOR REFERRAL [...] Problem Colon cancer screening (Z12.11) Active confirmed 600779504 Problem Diverticulosis of large intestine without perforation or abscess without bleeding (K57.30) Active confirmed Diverticul ar disease of colon (664309621) Problem Preprocedural examination (Z01.818) Active confirmed [id number] PLAN OF TREATMENT Pending Test Test Name Order Date ENDOMYSIAL IGA 01/10/2012 TRANSGLUTAMINASE AB IGA 01/10/2012 TRANSGLUTAMINASE AB IGG 01/10/2012 Future Test Test Name Order Date UPPER GI ENDOSCOPY 06/19/2012 COLONOSCOPY 01/24/2023 Insurance Providers Payer Name Payer Address Payer Phone Subscriber Number Group Number Insured Name Patient Relationship to Insured Coverage Start Date Coverage End Date MEDICARE OF [place] [address] [place] [address] [id number] MEAGHAN YE Self - patient is the insured [facility] [employer] [address] [place] [address] [id number] MEAGHAN YE Self - patient is the insured MEDICAL (GENERAL) HISTORY Medical History History ICD Code Diverticulosis, with a history of divert iculitis in 2006. Denies AR,DM,CVA,Lung disease,renal dise ase Neg. screening colonoscopy in 2000 and i n 02/2012-diverticulosis Negative lab work for celiac disease in 2011 EGD 2012 with minimal HH and benign gloria sourav polyp Surgical History Surgery Date(Month/Year) Spinal stenosis Melanoma in left forearm 2014
--- OUTSIDE RECORDS SUMMARY | 2024-05-11 08:43 | XMS_ITS ---
Author Organization [facility] Address [address] [place] [phone] Care Team Providers Care Lump Maker Name Role Phone Bon Ha MD Primary Care Provider Daniel Locke Unavailable [phone] ALLERGIES No Known Allergies REASON FOR VISIT [...] Problem Colon cancer screening (Z12.11) Active confirmed 513550251 Problem Preprocedural examination (Z01.818) Active confirmed [id number] VITAL SIGNS BMI 21.18 kg/m2 01/24/2023 Blood pressure systolic 000 mm Hg 01/25/20 23 Blood pressure diastolic 00 mm Hg 023 Height 74 in 01/24/2023 Temperature 97.5 degrees Fahrenheit 01/25/20 23 Weight 165 lbs 01/24/2023 Encounters Encounter Location Date Provider Diagnosis [facility] [address] [place] [address] 01/24/2023 Daniel Marie Colon cancer screeni ng [...]
[2024-05-11 10:21] VITALS: BP 163/82; PULSE 64; RESP 16; TEMP 36.5; O2SAT 100
[2024-05-11] MEDS: Tetracaine HCl/PF 0.5% Oph Sol 4 ML DROPS 1 DROP EYE-RIGHT (10:27)
[2024-05-11] MEDS: Cyclopentolate 1 % Ophth Sol 2 ML DRPBTL 1 DROP EYE-RIGHT ×3 (10:31→10:36)
[2024-05-11] MEDS: Tropicamide 1 % Ophth Sol 3 ML BTL 1 DROP EYE-RIGHT ×3 (10:31→10:36)
[2024-05-11] MEDS: Ketorolac Tromethamine 0.5% Op 10 ML DROPS 1 DROP EYE-RIGHT ×3 (10:32→10:36)
[2024-05-11] MEDS: Phenylephrine HCL 2.5% Oph SoL 2 ML BOTTLE 1 DROP EYE-RIGHT ×3 (10:32→10:37)
[2024-05-11] MEDS: Lactated Ringers 500 ML 50 ML IV (10:43)
--- NOTE | 2024-05-11 11:20 | P.PCNO_ITS ---
Ophthalmology Procedure Procedure Date of Service: 05/11/24 Ophthalmology Viscoelastic: Healon Duet Dual Pack Pro Ophthalmology Lenses: IOL Acrysof MP - MA60AC (26.5) Procedure Notes: PREOPERATIVE DIAGNOSIS: Decreased visual acuity right eye secondary to cataract POSTOPERATIVE DIAGNOSIS: Same PROCEDURE: Right cataract extraction with intraocular lens insertion SURGEON: Pedro Jensen M.D. ANESTHESIA: Topical/MAC ESTIMATED BLOOD LOSS: None COMPLICATIONS: None After obtaining informed consent, the patient was brought to the operating room suite and placed in the supine position. After adequate sedation per anesthesia, topical drops of Tetracaine were given to the right eye. The eye was then prepped and draped in the usual sterile fashion. The operating room microscope was then positioned over the operative eye and a lid speculum placed. A paracentesis was created. Viscoelastic was then instilled into the anterior chamber. A three plane incision was then created temporally, utilizing a 2.85 mm keratome. Capsulotomy forceps were then utilized to create a circular tear capsulotomy. Hydrodissection and hydrodelineation were carried out until adequate mobilization of the nucleus occurred. Phacoemulsification was then utilized to remove the dense central nu cleus followed by removal of the cortical material utilizing the automated aspiration irrigation unit. Viscoelastic was instilled into the posterior capsular bag followed by placement of a posterior chamber intraocular lens without difficulty. The residual Viscoelastic was then removed utilizing the automated IA machine. The wound was checked and found to be watertight. The patient tolerated the procedure well and the lid speculum was removed. Intracameral injection of Vigamox 0.1 mL followed by a subtenon injection of Kenalog-40 0.2 mL were administered. The patient will be seen in the a.m.
--- NOTE | 2024-05-11 11:20 | MHC.SHP ---
Pre-Procedural Eval Section A - 24 Hr Update-Section A only Date of Service: 05/11/24 The patient is an INPATIENT: No Changes since office visit: No Cold of Flu in the past 2 weeks, No New Medical Problems, No Changes in Medication and No Patient answered all questions The patient has been examined within 24 hours of the surgical procedure. The History & Physical has been completed within 30 days and I have reviewed it.: Yes Section B - Complete if H&P > 30 days Chief Complaint: Age-related nuclear cataract, right eye Allergies: Allergies Allergy/AdvReac Type Severity Reaction Status Date / Time No Known Allergies Allergy Verified 05/01/24 11:08 Plan Diagnosis/Plan: Unchanged I have reviewed the history and physical and performed a pertinent physical examination on my patient. No changes have occurred unless specified. Time Spent With Patient Time: Total time managing care of this patient today ____ minutes.
[2024-05-11 11:39] VITALS: BP 145/82; PULSE 60; RESP 16; TEMP 36.9; O2SAT 100
== END 2024-05-11 11:55 | disposition home or self-care (01) ==
PROVIDERS: PCP Internal Medicine; Visit Provider Ophthalmology
PROC: (CPT 66985; principal; 2024-05-11 11:30)
DX: H25.11 Age-related nuclear cataract, right eye (principal); H52.4 Presbyopia; H40.033 Anatomical narrow angle, bilateral; H43.391 Other vitreous opacities, right eye; H18.413 Arcus senilis, bilateral; M48.00 Spinal stenosis, site unspecified; Z85.820 Personal history of malignant melanoma of skin; Z79.899 Other long term (current) drug therapy; Z98.890 Other specified postprocedural states
CPT/HCPCS: 66984; J1920; J2250; J3010; J3301; V2630

== ENCOUNTER 2024-05-25 08:40 | Day surgery (SDC) | payer MEDICARE, OTHER, SELFPAY ==
[2024-05-04 14:51] VITALS: BMI 20.9
--- NOTE | 2024-05-21 13:27 | P.CONAN_ITS ---
Documented by User: Candy Barbosa NP 05/21/24 13:28 HPI - Anesthesia Eval Consult details Narrative: 73yo M for Left Cataract Extraction IOL Insertion Right eye 05/11/24: Fent 25, Midaz 2, Labetalol 5 PMFSH Active Problems Active Problems: All Active Problems Preop exam for internal medicine (Acute) Cough (Acute) Encounter for subsequent annual wellness visit (AWV) in Medicare patient (Acute) Physical exam (Acute) Past Medical History Medical History Melanoma Spinal stenosis Family History Family History Father Industrial accident Mother Diabetes Brother No problems noted. Brother No problems noted. Son No problems noted. Daughter No problems noted. Daughter No problems noted. Daughter No problems noted. Family history of problems with anesthesia: No Surgical History Surgical History Hx of colonoscopy History of lumbar laminectomy History of tonsillectomy History of Problems with Anesthesia: No Social History Social History Housing: House Alcohol intake: current Alcohol intake frequency: a few times a month Patient Tobacco Use Status: Never used Tobacco Tobacco use type: Cigarette e-Cigarette/Vaping Use: Never Used Second Hand Smoke Exposure: No Use of substances other than those prescribed or required for medical reasons: No Judaism Healthcare Practices: Denominational Advance Directives Information Provided: Yes (as abov enoted) Advance Directives on File: No service: No Current occupational status: employed and retired Cognitive needs: No Hearing needs: No Vision needs: Yes Meds Allergies Allergy/AdvReac Type Severity Reaction Status Date / Time No Known Allergies Allergy Verified 05/01/24 11:08 Exam Height,Weight and Vital Signs: Height 6 ft 0.44 in Weight 70.931 kg Assessment and Plan Assessment Anesthesia Assessment: Chart Reviewed Final Anesthetic Review Family History of Problems with Anesthesia: No History of Problems with Anesthesia: No Documented by User: Brina Cruz MD 05/25/24 10:26 PMF Past Medical History Medical History Melanoma Spinal stenosis Family History Family History Father Industrial accident Mother Diabetes Brother No problems noted. Brother No problems noted. Son No problems noted. Daughter No problems noted. Daughter No problems noted. Daughter No problems noted. Surgical History Surgical History Hx of colonoscopy History of lumbar laminectomy History of tonsillectomy Social History Social History Housing: House Alcohol intake: current Alcohol intake frequency: a few times a month Patient Tobacco Use Status: Never used Tobacco Tobacco use type: Cigarette e-Cigarette/Vaping Use: Never Used Second Hand Smoke Exposure: No Use of substances other than those prescribed or required for medical reasons: No Judaism Healthcare Practices: Denominational Advance Directives Information Provided: Yes (as abov enoted) Advance Directives on File: No service: No Current occupational status: employed and retired Cognitive needs: No Hearing needs: No Vision needs: Yes Meds Allergies Allergy/AdvReac Type Severity Reaction Status Date / Time No Known Allergies Allergy Verified 05/01/24 11:08 Exam Airway Mallampati Class: II (caps laterally) TM Dist: >3cm Neck ROM: Full Heart: rrr Lungs: cta Assessment and Plan Assessment Anesthesia Assessment: Anesthesia Plan Discussed Final Anesthetic Review NPO: Yes ASA Class: II Final Preanesthetic Review: No Changes in Pt Med Stat, Meds/Allgs Chart Reviewed and Consent Obtained/Reviewed Patient Risk: Low Procedure Risk: Low Anesthetic Plan Anesthetic Plan: MAC: Disposition: Standard PACU
[2024-05-25 09:43] VITALS: BP 156/79; PULSE 62; RESP 16; TEMP 36.3; O2SAT 99
[2024-05-25] MEDS: Tetracaine HCl/PF 0.5% Oph Sol 4 ML DROPS 1 DROP EYE-LEFT (09:49)
[2024-05-25] MEDS: Cyclopentolate 1 % Ophth Sol 2 ML DRPBTL 1 DROP EYE-LEFT ×3 (09:50→09:55)
[2024-05-25] MEDS: Ketorolac Tromethamine 0.5% Op 10 ML DROPS 1 DROP EYE-LEFT ×3 (09:51→09:56)
[2024-05-25] MEDS: Tropicamide 1 % Ophth Sol 3 ML BTL 1 DROP EYE-LEFT ×3 (09:51→09:56)
[2024-05-25] MEDS: Phenylephrine HCL 2.5% Oph SoL 2 ML BOTTLE 1 DROP EYE-LEFT ×3 (09:52→09:57)
[2024-05-25] MEDS: Lactated Ringers 500 ML 50 ML IV (09:58)
--- NOTE | 2024-05-25 10:24 | MHC.SHP ---
Pre-Procedural Eval Section A - 24 Hr Update-Section A only Date of Service: 05/25/24 The patient is an INPATIENT: No Changes since office visit: No Cold of Flu in the past 2 weeks, No New Medical Problems, No Changes in Medication and No Patient answered all questions The patient has been examined within 24 hours of the surgical procedure. The History & Physical has been completed within 30 days and I have reviewed it.: Yes Section B - Complete if H&P > 30 days Chief Complaint: Age-related nuclear cataract, left eye Allergies: Allergies Allergy/AdvReac Type Severity Reaction Status Date / Time No Known Allergies Allergy Verified 05/01/24 11:08 Plan Diagnosis/Plan: Unchanged I have reviewed the history and physical and performed a pertinent physical examination on my patient. No changes have occurred unless specified. Time Spent With Patient Time: Total time managing care of this patient today ____ minutes.
--- NOTE | 2024-05-25 10:24 | HO.PNOPHT ---
Ophthalmology Procedure Procedure Date of Service: 05/25/24 Ophthalmology Viscoelastic: Healon Duet Dual Pack Pro Ophthalmology Lenses: IOL Acrysof MP - MA60AC (26) Procedure Notes: PREOPERATIVE DIAGNOSIS: Decreased visual acuity left eye secondary to cataract POSTOPERATIVE DIAGNOSIS: Same PROCEDURE: Left cataract extraction with intraocular lens insertion SURGEON: Pedro Jensen M.D. ANESTHESIA: Topical/MAC ESTIMATED BLOOD LOSS: None COMPLICATIONS: None After obtaining informed consent, the patient was brought to the operation room suite and placed in the supine position. After adequate sedation per anesthesia, topical drops of Tetracaine were given to the left eye. The eye was then prepped and draped in the usual sterile fashion. The operating room microscope was then positioned over the operative eye and a lid speculum placed. A paracentesis was created. Viscoelastic was then instilled into the anterior chamber. A three plane incision was then created temporally, utilizing a 2.85 mm keratome. Capsulotomy forceps were then utilized to create a circular tear capsulotomy. Hydrodissection and hydrodelineation were carried out until adequate mobilization of the nucleus occurred. Phacoemulsification was then utilized to remove the dense central nucleus followed by removal of the cortical material utilizing the automated aspiration irrigation unit. Viscoat elastic was instilled into the posterior capsular bag followed by placement of a posterior chamber intraocular lens without difficulty. The residual Viscoat elastic was then removed utilizing the automated IA machine. The wound was check and found to be watertight. The patient tolerated the procedure well and the lid speculum was removed. Intracameral injection of Vigamox 0.1 mL followed by a subtenon injection of Kenalog-40 0.2 mL were administered. The patient will be seen in the a.m.
[2024-05-25 10:52] VITALS: BP 145/74; PULSE 65; RESP 16; TEMP 36.1; O2SAT 100
--- OUTSIDE RECORDS SUMMARY | 2024-05-25 12:50 | XMS_ITS ---
Author Organization [facility] Address [address] [place] [address] Care Team Providers Care Zoning Assistant Name Role Phone Bon Ha MD Primary Care Provider Unavaila Daniel Gonzalez Unavailable [phone] REASON FOR VISIT screening PROBLEMS Problem Type ICD Code Onset Dates Problem Status W/U Status Risk SNOMED Code Notes Problem Diverticulosis of large intestine without perforation or abscess without bleeding (K57.30) Active confirmed Diverticul ar disease of colon (332455144) Encounters Encounter Location Date Provider Diagnosis [facility] [address] [place] [address] [phone] 05/03/2023 Daniel Marie Encounter for scre ening [...]
--- OUTSIDE RECORDS SUMMARY | 2024-05-25 12:50 | XMS_ITS | Patient Health Record ---
Author Organization [facility] Address [address] [place] [id number] Care Team Providers Care Cattyman Name Role Phone Bon Ha MD Primary Care Provider Ositoa Daniel Gonzalez Unavailable [phone] ALLERGIES No Known Allergies REASON FOR REFERRAL [...] Problem Colon cancer screening (Z12.11) Active confirmed [id number] Problem Diverticulosis of large intestine without perforation or abscess without bleeding (K57.30) Active confirmed Diverticul ar disease of colon (917484094) Problem Preprocedural examination (Z01.818) Active confirmed 853080606775976 PLAN OF TREATMENT Pending Test Test Name Order Date ENDOMYSIAL IGA 01/10/2012 TRANSGLUTAMINASE AB IGA 01/10/2012 TRANSGLUTAMINASE AB IGG 01/10/2012 Future Test Test Name Order Date UPPER GI ENDOSCOPY 06/19/2012 COLONOSCOPY 01/24/2023 Insurance Providers Payer Name Payer Address Payer Phone Subscriber Number Group Number Insured Name Patient Relationship to Insured Coverage Start Date Coverage End Date MEDICARE OF [place] [address] [place] [address] [id number] MEAGHAN YE Self - patient is the insured [facility] INDEMNITY [address] [place] [address] [id number] MEAGHAN YE Self - patient is the [...]
--- OUTSIDE RECORDS SUMMARY | 2024-05-25 12:50 | XMS_ITS ---
Author Organization [facility] Address [address] [place] [address] Care Team Providers Care Biogeographer Name Role Phone Bon Ha MD Primary Care Provider Daniel Locke Unavailable [phone] ALLERGIES No Known Allergies REASON FOR VISIT [...] Problem Colon cancer screening (Z12.11) Active confirmed [id number] Problem Preprocedural examination (Z01.818) Active confirmed [id number] VITAL SIGNS BMI 21.18 kg/m2 01/24/2023 Blood pressure systolic 000 mm Hg 01/25/20 23 Blood pressure diastolic 00 mm Hg 023 Height 74 in 01/24/2023 Temperature 97.5 degrees Fahrenheit 01/25/20 23 Weight 165 lbs 01/24/2023 Encounters Encounter Location Date Provider Diagnosis [facility] [address] [place] [address] 01/24/2023 Daniel Marie Colon cancer screeni ng [...]
== END 2024-05-25 10:55 | disposition home or self-care (01) ==
PROVIDERS: PCP Internal Medicine; Visit Provider Ophthalmology
PROC: (CPT 66985; principal; 2024-05-25 11:00)
DX: H25.12 Age-related nuclear cataract, left eye (principal); H52.4 Presbyopia; H40.022 Open angle with borderline findings, high risk, left eye; H18.413 Arcus senilis, bilateral; Z85.820 Personal history of malignant melanoma of skin; M48.00 Spinal stenosis, site unspecified; Z79.899 Other long term (current) drug therapy; Z98.890 Other specified postprocedural states
CPT/HCPCS: 66984; J2250; J3301; V2630

== ENCOUNTER 2024-06-22 08:54 | Outpatient (AMB) | payer MEDICARE, OTHER, SELFPAY ==
[2024-06-22 09:03] VITALS: BP 128/62; PULSE 72; O2SAT 98; BMI 21.3
--- NOTE | 2024-06-22 09:03 | MHC.PC.OV ---
Vital Signs 06/22/24 09:03 Height 6 ft Weight 157 lb BMI 21.3 BP 128/62 Blood Pressure Location Lt brachial Position Sitting Pulse 72 Pulse Source Pulse Oximeter Pulse Oximetry (%) 98 Oxygen Delivery Method Room Air Intake Visit Reasons: Annual Exam Balling Head Tender Required: No Accompanied by: Self / Same As Patient Allergies No Known Allergies Allergy (Verified 06/22/24 09:04) Medication List - Last Reconciled 06/22/24 by Bon Ha MD amitriptyline 25 mg PO DAILY Tobacco use date assessed: 05/01/24 Fall risk assessment: No Falls in past year Last assessed Fall Risk: 06/22/24 Dental Screening Dental Screen Date: 05/01/24 HPI Annual Exam HPI Details healthy [facility] Medical History Melanoma Spinal stenosis Surgical History Hx of colonoscopy History of lumbar laminectomy History of tonsillectomy Family History Father Industrial accident Mother Diabetes Brother No problems noted. Brother No problems noted. Son No problems noted. Daughter No problems noted. Daughter No problems noted. Daughter No problems noted. Social History Housing: House Alcohol intake: current Alcohol intake frequency: a few times a month Patient Tobacco Use Status: Never used Tobacco Tobacco use type: Cigarette e-Cigarette/Vaping Use: Never Used Second Hand Smoke Exposure: No service: No Current occupational status: employed and retired Cognitive needs: No Hearing needs: No Vision needs: Yes Questionnaire PHQ-9 Over the last 2 weeks, how often have you been bothered by any of the following problems? 1. Little interest or pleasure in doing things: not at all 2. Feeling down, depressed, or hopeless: not at all 3. Trouble falling or staying asleep, or sleeping too much: not at all 4. Feeling tired or having little energy: not at all 5. Poor appetite or overeating: not at all 6. Feeling bad about yourself - or that you are a failure or have let yourself or your family down: not at all 7. Trouble concentrating on things, such as reading the newspaper or watching television: not at all 8. Moving or speaking so slowly that other people could have noticed. Or the opposite - being so fidgety or restless that you have been moving around a lot more than usual: not at all 9. Thoughts that you would be better off or of hurting yourself in some way: not at all Total score: 0 Depression Screening Interpretation: Negative Depression Screening Done: Yes 94839 - PHQ-9 Billing: Yes Source: Developed by Drs. Daniel Esquivel, Rita Piña, Skinny Bishop and colleagues, with an educational alis from [employer]. Thrive Questionnaire Date Thrive assessed: 05/01/24 I am a: Patient What is your living situation today?: I have a steady place to live Within the past 12 months, did the food you bought not last and you didn't have the money to get more?: Never true Within the past 12 months, did you worry whether your food would run out before you got money to buy more?: Never true Do you have trouble paying for medicines?: No Do you have trouble getting transportation to medical appointments?: No Do you have trouble paying your heating and electricity bill?: No Do you have trouble taking care of your child, family member or friend?: No Do you have trouble with day-to-day activities such as bathing, preparing meals, shopping, managing finances, etc.?: No Are you currently unemployed and looking for a job?: No Are you interested in more education?: No Please select the resources that you would like help with: None Currently or been in a relationship where the following occur: No concerns reported THRIVE Score: 0 AUDIT C Alcohol Use Questionnaire (AUDIT-C) 1. How often do you have a drink containing alcohol?: Monthly or less 2. How many drinks containing alcohol do you have on a typical day when you are drinking?: 1 or 2 3. How often do you have six or more drinks on one occasion?: Never Total Score: 1 ED-7 AMB Questionnaire ED-7 Date ED - 7 assessed: 05/01/24 Feeling nervous, anxious, or on edge: 0 = Not at all Not being able to stop or control worryin = Not at all Worrying too much about different things: 0 = Not at all Trouble relaxin = Not at all Being so restless that it is hard to sit still: 0 = Not at all Becoming easily annoyed or irritable: 0 = Not at all Feeling afraid as if something awful might happen: 0 = Not at all Total ED-7 score (0-4 normal; 5-9 mild; 10-14 moderate; 15-21 severe): 0 Source: Developed by Drs. Daniel Esquivel, Rita Piña, Skinny Bishop and colleagues, with an educational alis from [employer]. Review of Systems Const Denies chills, Denies fatigue, Denies headache(s) and Denies weight loss Eyes Denies change in vision, Denies diplopia and Denies eye pain ENT Denies vertigo, Denies dizziness, Denies headache(s) and Denies nasal discharge Card Denies chest pain, Denies rapid heart rate and Denies dyspnea on exertion Resp Denies chest congestion, Denies cough, Denies pain with cough and Denies dyspnea on exertion GI Denies abdominal pain, Denies hematochezia and Denies change in bowel habits Musc Denies myalgias, Denies arthralgias and Denies joint swelling Skin/Breast Denies lesions and Denies unusual bruising Neuro Denies vertigo, Denies dizziness, Denies headache(s) and Denies focal weakness Endo Denies fatigue Physical exam (Primary Care) Vital Signs: Last Vital Signs Pulse 72 06/22/24 09:03 BP 128/62 06/22/24 09:03 Pulse Ox 98 06/22/24 09:03 Oxygen Delivery Method Room Air 06/22/24 09:03 BMI result Body Mass Index 21.3 Tobacco/Smoking Status: Tobacco use Status Tobacco use date assessed 05/01/24 06/22/24 09:08 Patient Tobacco Use Status Never used Tobacco 06/22/24 09:08 Tobacco use type Cigarette 06/22/24 09:08 e-Cigarette/Vaping Use Never Used 06/22/24 09:08 PHQ-9: PHQ-9 Score PHQ-9: Total score 0 06/22/24 09:08 Depression Screening Interpretation: Negative Thrive Assessment: Date of Thrive Assessment Date Thrive assessed 05/01/24 06/22/24 09:08 Currently or been in a relationship where the following occur: No concerns reported Const General: cooperative, healthy appearing and no acute distress Orientation/consciousness: oriented to person, oriented to place and oriented to time HENMT Head: Yes normal to inspection, Yes normocephalic and Yes atraumatic Mouth: Normal oral and palatal mucosa present and tongue normal Throat: Yes posterior oropharynx normal and Yes uvula midline Eyes General: appearance normal, both eyes and all related structures Neck Neck: Yes normal visual inspection, Yes full ROM and Yes no lymphadenopathy Thyroid: Thyroid normal Carotids: normal carotid upstroke Chest Chest palpation & inspection: normal inspection of the chest Resp Effort & Inspection: normal respiratory effort and able to speak in complete sentences Auscultation: clear to auscultation bilaterally Cardio Jugular venous distension: no JVD Palpation: normal PMI Rate: regular rate Rhythm: regular rhythm Heart sounds: S1 normal heart sound present and S2 normal heart sound present GI Inspection: Yes normal to inspection Palpation (GI): Soft to palpation and No hepatosplenomegaly present Auscultation: normal bowel sounds General: Yes no CVA tenderness Back/Spine/Pelvis Back: no CVA tenderness Skin General skin exam: no rashes or lesions noted Neuro General: oriented to person, oriented to place and oriented to time Extrem General: Yes normal to inspection and Yes full ROM Coding Level of Care Code New Pt Prev Care >65yr (96022) Diagnoses Physical exam Z00.00 Additional Codes PHQ-9 - 92434 - PHQ-9 Billing: Yes ([id number]) Assessment & Plan Assessment & Plan (1) Physical exam: Code(s): Z00.00 - Encounter for general adult medical examination without abnormal findings Category: Medical Plan: healthy; do abs Orders: Orders Complete Blood Count Auto Diff Today Z13.0 - Encounter for screening for diseases of the blood and blood-forming organs and certain disorders involving the immune mechanism Comprehensive [place]. Panel Fast Today Z13.9 - Encounter for screening, unspecified Prostate Specific Antigen Scr Today Z00.00 - Encounter for general adult medical examination without abnormal findings Lipid Panel Today Z13.220 - Encounter for screening for lipoid disorders Thyroid Stimulating Hormone Today Z13.29 - Encounter for screening for other suspected endocrine disorder
--- OUTSIDE RECORDS SUMMARY | 2024-06-22 09:24 | XMS_ITS | Patient Health Record ---
Author Organization [facility] Address [address] [place] [address] Care Team Providers Care Mica Layer Name Role Phone Bon Ha MD Primary Care Provider Ositoa Daniel Gonzalez Unavailable [phone] ALLERGIES No Known Allergies REASON FOR REFERRAL [...] Problem Colon cancer screening (Z12.11) Active confirmed 223993003 Problem Diverticulosis of large intestine without perforation or abscess without bleeding (K57.30) Active confirmed Diverticul ar disease of colon (480896258) Problem Preprocedural examination (Z01.818) Active confirmed [id number] PLAN OF TREATMENT Pending Test Test Name Order Date ENDOMYSIAL IGA 01/10/2012 TRANSGLUTAMINASE AB IGA 01/10/2012 TRANSGLUTAMINASE AB IGG 01/10/2012 Future Test Test Name Order Date UPPER GI ENDOSCOPY 06/19/2012 COLONOSCOPY 01/24/2023 Insurance Providers Payer Name Payer Address Payer Phone Subscriber Number Group Number Insured Name Patient Relationship to Insured Coverage Start Date Coverage End Date MEDICARE OF [place] [address] [place] [address] [id number] MEAGHAN YE Self - patient is the insured [facility] INDEMN[employer] [address] [place] [address] [id number] MEAGHAN YE Self - patient is the insured MEDICAL (GENERAL) HISTORY Medical History History ICD Code Diverticulosis, with a history of divert iculitis in 2006. Denies [place],DM,CVA,Lung disease,renal dise ase Neg. screening colonoscopy in 2000 and i n 02/2012-diverticulosis Negative lab work for celiac disease in 2011 EGD 2012 with minimal HH and benign gloria sourav polyp Surgical History Surgery Date(Month/Year) Spinal stenosis Melanoma in left forearm 2014
== END 2024-06-22 09:36 | disposition home or self-care (01) ==
PROVIDERS: PCP Internal Medicine; Visit Provider Internal Medicine
DX: Z00.00 Encounter for general adult medical examination without abnormal findings (principal)

== ENCOUNTER → 2024-06-22 08:54 | Outpatient (BNVA) | payer MEDICARE, OTHER, SELFPAY | PROVIDERS: PCP Internal Medicine; Visit Provider Internal Medicine | DX: Z00.00 Encounter for general adult medical examination without abnormal findings (principal) | CPT/HCPCS: 96127; 99397 ==

== ENCOUNTER 2024-07-06 06:36 | Outpatient (REF) | payer MEDICARE, OTHER, SELFPAY ==
--- OUTSIDE RECORDS SUMMARY | 2024-07-06 06:39 | XMS_ITS ---
Author Organization [facility] Address [address] [place] [id number] Care Team Providers Care Real Estate Photographer Name Role Phone Bon Ha MD Primary Care Provider Unavaila Daniel Gonzalez [phone] REASON FOR VISIT screening Problems Problem Type SNOMED Code ICD Code Onset Dates Problem Status W/U Status Risk Notes Problem Diverticular disease of colon (641310958) Diverticulosis of large intestine without perforation or abscess without bleeding (K57.30) Active confirmed Encounters Encounter Location Date Provider Diagnosis [facility] [address] [place] [phone] 05/03/2023 Daniel Marie Encounter for scre ening colonoscopy Z12.11 ; Diverticulosis of large intestine without perforation or abscess without bleeding K57.30 and Other hemorrhoids K64.8 Assessments Encounter Date Diagnosis (ICD Code) Assessment Notes Treatment Notes Treatment Clinical Notes Section Notes 05/03/2023 Encounter for screening colonoscopy (ICD-10 - Z12.11) 05/03/2023 Diverticulosis of large intestine without perforation or abscess without bleeding (ICD-10 - K57.30) 05/03/2023 Other hemorrhoids (ICD-10 - K64.8) Plan Of Treatment No Information Progress Notes * MEAGHAN YEDOB:1950 (74 yo M)Acc No.[id number]:05/03/2023 COLON WITH MAC Patient:?MEAGHAN YE Provider:?Daniel Marie MD :1950???Age:72 Y???Sex:Male Jean e:05/03/2023 Address:[address] [place] [address], [id number] Pcp:Bon Ha MD Subjective: * Chief Complaints: * ???1. Screening. * Medical History:? Objective: * Vitals:? Assessment: * Assessment: 1.?Encounter for screening c olonoscopy - Z12.11 (Primary)???2.?Diverticulosis of large intestine without perforation or abscess without bleeding - K57.30???3.?Other hemorrhoids - K64.8??? Plan: * Treatment: * Procedure Codes:?G0121 COLOR EC CNCR SCR;COLNSCPY NO HI RSK, 0529F INTRVL 3+YRS PTS CLNSCP DOCD, 0528F RCMND FLW-UP 10 YRS DOCD, Modifiers: 1P * * The named appointment provid er may or may not be the originator of this progress note, and it is not deemed complete until electronically signed by the appointment provider. Sign off status: Pending * Provider:?Daniel Marie MD Date:? 024 Generated for Dania adames/Megan/eTransmitting on:?07/06/2024 06:38 AM EDT
--- OUTSIDE RECORDS SUMMARY | 2024-07-06 06:39 | XMS_ITS | Patient Health Record ---
Author Organization [facility] Address [address] [place] [id number] Care Team Providers Care Professor Of Biological Sciences Name Role Phone Bon Ha MD Primary Care Provider Ositoa Daniel Gonzalez Unavailable [phone] Allergies No Known Allergies Reason For Referral No Information Medications Medication SIG (Take, Route, Frequency, Duration) Notes Start Date End Date Status Multi Vitamin - 1 tablet Orally Once a day for 30 day(s) 01/24/2023 Active Vitamin D-3 25 MCG (1000 UT) 1 capsule O rally Once a day for 30 day(s) 01/24/2023 Active Biotin 5000 01/24/2023 Active Amitriptyline HCl 25 MG Oral for 90 Active Immunizations Vaccine Route Administration Date Status Comme nts Influenza Unknown 02/13/2022 Administered Social History Alcohol Screen Question Answer Notes Did you [...] Never (0 point) Points 1 Interpretation Negative Section Notes: Nonsmoker; no significant al cohol Nonsmoker; no significant al cohol. The patient is retired and is . Nonsmoker; no significant al cohol. The patient is retired and is . Problems Problem Type SNOMED Code ICD Code Onset Dates Problem Status W/U Status Risk Notes Problem [id number] Colon cancer screening (Z12.11) Active confirmed Problem Diverticular disease of colon (828057945) Diverticulosis of large intestine without perforation or abscess without bleeding (K57.30) Active confirmed Problem [id number] Preprocedural examination (Z01.818) Active confirmed Plan Of Treatment Pending Test Test Name Order Date ENDOMYSIAL IGA 01/10/2012 TRANSGLUTAMINASE AB IGA 01/10/2012 TRANSGLUTAMINASE AB IGG 01/10/2012 Future Test Test Name Order Date UPPER GI ENDOSCOPY 06/19/2012 COLONOSCOPY 01/24/2023 Insurance Providers Payer Name Payer Address Payer Phone Subscriber Number Group Number Insured Name Patient Relationship to Insured Coverage Start Date Coverage End Date MEDICARE OF [place] [address] [place] [address] [id number] MEAGHAN YE Self - patient is the insured [employer] [address] [place] [address] [id number] MEAGHAN YE Self - patient is the insured Medical (General) History Medical History History ICD Code Diverticulosis, with [...]
[2024-07-06 07:00] LABS: MANUAL DIFF FLAG NO
[2024-07-06 07:38] LABS: Basophils Percent Auto 0.8 % (0-2); Eosinophils Absolute Auto 0.4 X10*3/uL (0.0-0.4); Eosinophils Percent Auto 7.7 % (0-4); Hematocrit 46.3 % (42.0-52.0); Hemoglobin 15.1 g/dl (14.0-18.0); Imm Gran Abs Auto 0.02 X10*3/uL (0.00-0.03); Imm Gran Pct Auto 0.4 % (0.0-0.4); Lymphocytes Absolute Auto 1.3 X10*3/uL (1.2-4.9); Lymphocytes Percent Auto 27.2 % (20-40); Mean Corpuscular HGB Conc 32.6 g/dl (31.0-36.0); Mean Corpuscular Hemoglobin 29.1 pg (27.0-33.0); Mean Corpuscular Volume 89.2 fL (80.0-98.0); Monocytes Absolute Auto 0.6 X10*3/uL (0.1-1.2); Monocytes Percent Auto 11.2 % (2-11); Neutrophils Absolute Auto 2.6 x10*3/uL (2.0-8.3); Neutrophils Percent Auto 52.7 % (45-73); Platelet Count 229 X10*3/uL (160-400); Red Blood Count 5.19 X10*6/uL (4.60-5.80); Red Cell Distribution Width 12.5 % (11.0-16.0); White Blood Count 4.9 X10*3/uL (4.8-10.8)
[2024-07-06 08:24] LABS: Prostate Specific Antigen Scr 4.36 ng/mL (<0.05-4.0)
[2024-07-06 09:04] LABS: Alanine Aminotransferase 18 U/L (0-40); Albumin Level 3.8 g/dL (3.5-5.0); Alkaline Phosphatase 87 U/L (39-117); Anion Gap 9 (12-20); Aspartate Amino Transferase 25 U/L (5-37); Bilirubin Total 0.5 mg/dL (0.0-1.0); Blood Urea Nitrogen 17 mg/dL (9-16); Calcium 8.8 mg/dL (8.4-10.2); Carbon Dioxide 31 mmol/L (22-29); Chloride 107 mmol/L (96-108); Cholesterol 215 mg/dL (<200); Estimated Glomerular Filt Rate > 60; Glucose Fasting 94 mg/dL (60-99); HDL Cholesterol 65 mg/dL (>40); LDL Cholesterol Calculated 140 mg/dL (<100); Potassium 4.9 mmol/L (3.3-5.1); Sodium 142 mmol/L (135-145); Total Protein 6.8 g/dL (6.5-8.0); Triglycerides 51 mg/dL (<150)
[2024-07-06 09:33] LABS: Thyroid Stimulating Hormone 2.59 uIU/mL (0.32-4.0)
== END 2024-07-06 06:37 | disposition home or self-care (01) ==
LOC: HO.LAB 06:36
PROVIDERS: PCP Internal Medicine; Visit Provider Internal Medicine
DX: Z13.0 Encounter for screening for diseases of the blood and blood-forming organs and certain disorders involving the immune mechanism (principal); Z00.00 Encounter for general adult medical examination without abnormal findings; Z13.220 Encounter for screening for lipoid disorders; Z13.29 Encounter for screening for other suspected endocrine disorder; Z12.5 Encounter for screening for malignant neoplasm of prostate; Z13.6 Encounter for screening for cardiovascular disorders
CPT/HCPCS: 36415; 80053; 80061; 84153; 84443; 85025

== ENCOUNTER 2024-11-14 18:14 | Inpatient (IN) | payer MEDICARE, OTHER, SELFPAY ==
--- NOTE | ~2024-11-14 | XR_ITS ---
CLINICAL HISTORY: pain 2 view chest x-ray Comparison: CR/HI/SR - XR CHEST 2 VIEWS - 05/01/22 09:29 EST Findings: No consolidation or effusion. Heart size is normal. No acute fracture. IMPRESSION: 1. No acute findings. This document has been electronically signed by: Maria Esther Pugh MD on 11/14/2024 19:12:45
[2024-11-14 18:33] VITALS: BP 132/69; PULSE 102; RESP 16; TEMP 37.2; O2SAT 94; BMI 23.7
--- NOTE | 2024-11-14 18:41 | ECG_ITS ---
Test Reason : weakness Blood Pressure : */* mmHG Vent. Rate : 100 BPM Atrial Rate : 100 BPM P-R Int : 120 ms QRS Dur : 94 ms QT Int : 342 ms P-R-T Axes : 54 29 45 degrees QTcB Int : 441 ms Normal sinus rhythm Normal ECG When compared with ECG of 13-Oct-2009 15:20, No significant changes seen Referred By: Neptali Enciso Electronically Signed By: SHARON JORDAN
--- NOTE | 2024-11-14 18:42 | ED.GENADULT ---
HPI - General Adult General Chief complaint: General Medical Stated complaint: feels unwell, ? anaplasmosis Time Seen by Provider: 11/14/24 20:10 Source: patient Mode of arrival: ambulatory Limitations: no limitations History of Present Illness ED Provider: Carlos A RODRIGES HPI narrative: The patient is a 74-year-old male presenting to the ED reporting since last Saturday he has been feeling generally unwell with fevers up to 102, malaise, fatigue, headache, nausea. Patient reports shortly before onset of symptoms he removed a tick from his left upper arm. Patient was seen at urgent care and started on doxycycline. Patient was called back by urgent care and advised his liver function test and platelets were abnormal and he may be suffering from anaplasmosis. The patient reports despite 4 days of doxycycline he has had no improvement in symptoms including fever, nausea, and malaise with arthralgias. The patient vomited tonight and family brought him to the ED for evaluation. Related Data Home Medications ?Medication ?Instructions ?Recorded ?Confirmed doxycycline hyclate 100 mg capsule 100 mg PO BID 11/15/24 11/15/24 Previous Rx's ?Medication ?Instructions ?Recorded amitriptyline 25 mg tablet 25 mg PO DAILY #90 tabs 11/01/23 atovaquone 750 mg/5 mL oral 750 mg (5 mL) PO Q12H 9 days #90 mL 11/15/24 suspension (Mepron) azithromycin 500 mg tablet 500 mg PO DAILY 9 days #9 tabs 11/15/24 Allergies Allergy/AdvReac Type Severity Reaction Status Date / Time No Known Allergies Allergy Verified 11/14/24 18:34 Review of Systems Review of Systems: Yes all other systems are reviewed and are negative [facility] Past Medical History Medical History Melanoma Spinal stenosis Surgical History Hx of colonoscopy History of lumbar laminectomy History of tonsillectomy Family History Family History Father Industrial accident Mother Diabetes Brother No problems noted. Brother No problems noted. Son No problems noted. Daughter No problems noted. Daughter No problems noted. Daughter No problems noted. Social History Social History Housing: House Alcohol intake: current Alcohol intake frequency: a few times a month Patient Tobacco Use Status: Never used Tobacco Tobacco use type: Cigarette Smoked in Last 30 Days: No e-Cigarette/Vaping Use: Never Used Second Hand Smoke Exposure: No Use of substances other than those prescribed or required for medical reasons: No Advance Directives: No Advance Directives Information Provided: No Do you have a plan to hurt others: No Plan Nutrition Risks: No Nutritional Risk service: No Current occupational status: employed and retired Cognitive needs: No Hearing needs: No Vision needs: Yes Physical Exam ED Vital Signs: Vital Signs - 24 hr 11/14/24 18:33 11/14/24 19:54 Temperature 98.9 F 99.6 F Pulse Rate 102 H 85 Respiratory Rate 16 18 Blood Pressure 132/69 136/72 Pulse Oximetry 94 94 Oxygen Delivery Method Room Air Room Air BMI result Body Mass Index 23.7 CONSTITUTIONAL: The patient appears non-toxic, well nourished and in no acute distress. Vital signs as documented. HEAD: Atraumatic, normocephalic. EYES: EOMs grossly intact, pupils equal, conjunctiva clear, no exudate. ENT: Nares patent, no discharge. Airway patent, no audible stridor, visible mucosa is pink and moist without noted lesions. NECK: Trachea is midline, no obvious masses or gross abnormalities. CHEST: Symmetric movement, normal appearance. LUNGS: LS present and CTAB, no w/r/r. Non-labored work of breathing. CARDIAC: Regular Rhythm, S1/S2 appreciated, no murmurs, rubs or gallops. ABDOMEN: Abdomen soft and non-tender x4 quadrants, no palpable masses or organomegaly. : Deferred. EXTREMITIES: Normal tone, moves all extremities spontaneously without reported pain. No obvious acute injury or deformity noted. NEURO: Alert and oriented x3, CN II-XII appear grossly intact. Cerebellar Functioning grossly intact. No obvious sensory or motor deficits. Speech clear and appropriate. PSYCH: normal affect, appropriate eye contact, fluid speech, with appropriate response to questioning. No reported suicidality or homicidality. SKIN: Warm, dry, color appropriate, normal turgor. No rashes noted. Course Course Course Narrative: RME, this is a rapid medical exam performed by Red Enciso please refer to primary provider for complete H&P- 74 year old male presents for evaluation of general malaise and fevers since last Saturday, 1 week ago. He does report that he removed a tick about 3 weeks ago from his left axilla. He is currently on doxycycline for suspected anaplasmosis. At urgent Care he had a negative Lyme test but the anaplasmosis test is pending. Plan for labs including blood cultures given the reported fevers. We will also get viral testing Medications Administered Discontinued Medications Generic Name Dose Route Start Last Admin Trade Name Freq PRN Reason Stop Dose Admin Atovaquone 750 mg 11/14/24 21:07 11/14/24 22:20 Atovaquone 750 Mg/5 Ml Oral.Susp PO 11/14/24 21:08 750 mg ONCE ONE Administration Calcium Carbonate 750 mg 11/14/24 21:44 11/15/24 00:16 Calcium Carbonate 750 Mg Tab.Chew PO 750 mg Q4H PRN Administration Heartburn Doxycycline Monohydrate 100 mg 11/15/24 08:00 11/15/24 08:31 Doxycycline Monohydrate 100 Mg Capsule PO 100 mg Q12H OLINDA Administration Enoxaparin Sodium 40 mg 11/14/24 23:00 11/15/24 00:26 Enoxaparin Sodium 40 Mg/0.4 Ml Syringe SUBCUT 40 mg Q24H OLINDA Administration Sodium Chloride 2,381.37 mls @ 2,381.37 mls/hr 11/14/24 20:15 11/14/24 23:10 Ns 30 ml/kg infuse over 1 hr (2381.37 ml) 11/14/24 21:14 Infused IV Infusion .Q1H STA Doxycycline Hyclate 100 mg/ 250 mls @ 166.67 mls/hr 11/14/24 20:16 11/14/24 22:15 Sodium Chloride IV 11/14/24 21:45 Infused ONCE ONE Infusion Azithromycin 500 mg/ Sodium 250 mls @ 125 mls/hr 11/14/24 21:07 11/15/24 00:16 Chloride IV 11/14/24 23:06 Infused ONCE ONE Infusion Lactated Ringer's 1,000 mls @ 80 mls/hr 11/14/24 22:00 11/15/24 08:56 Lr IVCONT 80 mls/hr .[id number] OLINDA Infusion Sodium Chloride 3 ml 11/15/24 00:00 11/15/24 00:21 0.9 % Sodium Chloride Flush 3 Ml Syringe IVFLUSH 3 ml QSHIFT [facility] Administration Medical Decision Making Medical Decision Making [facility] Narrative: 9:12 PM 11/14/2024 (Ira RODRIGES): The patient is a 74-year-old male presenting to the ED reporting since last Saturday he has been feeling generally unwell with fevers up to 102, malaise, fatigue, headache, nausea. Patient reports shortly before onset of symptoms he removed a tick from his left upper arm. Patient was seen at urgent care and started on doxycycline. Patient was called back by urgent care and advised his liver function test and platelets were abnormal and he may be suffering from anaplasmosis. The patient reports despite 4 days of doxycycline he has had no improvement in symptoms including fever, nausea, and malaise with arthralgias. The patient vomited tonight and family brought him to the ED for evaluation. The patient's exam is benign, patient is nontoxic appearing, hemodynamically stable. The patient's laboratory evaluation demonstrates significant thrombocytopenia at 71 as well as elevated ALT, AST and alkaline phosphatase, T bili is normal. The patient's CBC demonstrates mild leukopenia and anemia. There is no evidence of electrolyte abnormality or JOSE RAMON. 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 We will add on azithromycin and atovaquone, and we will admit for suspected babesiosis requiring IV antibiotics. Admission/Observation Consideration of admission/observation: Escalation of care including admission/observation considered Lab Data [facility] Lab Attestation statement: I reviewed the patient's lab results. 11/15/24 05:33 11/15/24 05:33 Labs: Lab Results 11/14/24 11/14/24 11/14/24 Range/Units 18:58 19:28 20:49 WBC 3.9 L (4.8-10.8) X10*3/uL RBC 3.90 L D (4.60-5.80) X10*6/uL Hgb 11.3 L D (14.0-18.0) g/dl Hct 32.8 L D (42.0-52.0) % MCV 84.1 (80.0-98.0) fL MCH 29.0 (27.0-33.0) pg MCHC 34.5 (31.0-36.0) g/dl RDW 13.7 (11.0-16.0) % Plt Count 71 L D (160-400) X10*3/uL MPV 12.5 H (9.4-12.4) fL Immature Gran % (Auto) Cancelled Neut % (Auto) Cancelled Lymph % (Auto) Cancelled [place] % (Auto) Cancelled Eos % (Auto) Cancelled Baso % (Auto) Cancelled Lymph # (Auto) Cancelled [place] # (Auto) Cancelled Eos # (Auto) Cancelled Baso # (Auto) Cancelled Abs Immat Gran (auto) Cancelled Absolute Neuts (auto) Cancelled Absolute Nucleated RBC 0.000 (0.0-0.012) X10*3/uL Nucleated RBC % (auto) 0.0 (0.0-0.2) /100WBC Neutrophils % (Manual) 75 H (45-73) % Band Neutrophils % 2 L (3-5) % Lymphocytes % (Manual) 12 L (20-40) % Monocytes % (Manual) 10 (2-11) % Basophils % (Manual) 1 (0-2) % Abs Neuts (Manual) 3.0 (2.0-8.3) X10*3/uL Lymphocytes # (Manual) 0.5 L (1.2-4.9) X10*3/uL Monocytes # (Manual) 0.4 (0.1-1.2) X10*3/uL Toxic Vacuolation PRESENT Platelet Estimate DECREASED (NORMAL) Large Platelets PRESENT Plt Morphology Comment NOTED RBC Morphology NOTED Hypochromasia 1+ (5-14) /OIF Schistocytes 1+ (0-2) /OIF Smear Tech's Comments MANUAL DIFF Sodium 136 (135-145) mmol/L Potassium 4.1 (3.3-5.1) mmol/L Chloride 100 (96-108) mmol/L Carbon Dioxide 26 (22-29) mmol/L Anion Gap 14 (12-20) BUN 17 H (9-16) mg/dL Creatinine 0.84 (0.5-1.4) mg/dL Estim Creat Clear Calc 83.3 Estimated GFR > 60 Random Glucose 129 H (60-115) mg/dL Lactic Acid 1.0 (0.5-2.0) mmol/L Calcium 8.5 (8.4-10.2) mg/dL Total Bilirubin 0.9 (0.0-1.0) mg/dL AST 235 H (5-37) U/L ALT 202 H (0-40) U/L Alkaline Phosphatase 154 H (39-117) U/L Total Protein 6.2 L (6.5-8.0) g/dL Albumin 3.2 L (3.5-5.0) g/dL Lipase 41 (8-78) U/L Urine Color Dark Yellow Urine Appearance Clear Urine pH 6.5 (5.0-9.0) Ur Specific [place] 1.020 (1.005-1.025) Urine Protein 30 (1+) H (Neg-Trace) mg/dL Urine Glucose (UA) Negative (Negative) mg/dL Urine Ketones Negative (Negative) mg/dL Urine Blood Trace H (Negative) Urine Nitrite Negative (Negative) Ur Leukocyte Esterase Trace H (Negative) Urine RBC 3-5 H (0-2) /HPF Urine WBC 0-5 (0-5) /HPF Ur Squamous Epith Cells 0-2 (0-2) /HPF Urine Bacteria None Seen (None Seen) Hyaline Casts 3-5 (0-2) /LPF Acetaminophen 7 (<30) mcg/mL Monoscreen Negative (Negative) Influenza Type A (PCR) NEGATIVE (Negative) Influenza Type B (PCR) NEGATIVE (Negative) RSV RNA Qual (PCR) NEGATIVE (Negative) SARS-CoV-2 RNA (RT-PCR) NEGATIVE (Negative) Independent Interpretation I performed an independent interpretation of an: EKG (EKG shows sinus rhythm with a rate of 100, no evidence of acute ischemia, no ST elevation, no ectopy. QTC 441. ) Radiology Impression Discussion of test interpretation with radiology: I have reviewed the radiologist's reading. Radiologist Impression: CLINICAL HISTORY: pain 2 view chest x-ray Comparison: CR/NH/SR - XR CHEST 2 VIEWS - 05/01/22 09:29 EST Findings: No consolidation or effusion. Heart size is normal. No acute fracture. IMPRESSION: 1. No acute findings. This document has been electronically signed by: Maria Esther Pugh MD on 11/14/2024 19:12:45 Discharge Plan Discharge Clinical Impression: Babesiosis, Thrombocytopenia Patient Disposition: Admitted As Inpatient Interventions: ED Discharge Assessment Last Done: 11/15/24 08:57 Discharge Date/Time: 11/15/24 08:58
[2024-11-14 19:17] LABS: NRBC Abs Auto 0.000 X10*3/uL (0.0-0.012); NRBC Pct Auto 0.0 /100WBC (0.0-0.2); PLT CLUMP 1; Red Blood Count 3.90 X10*6/uL (4.60-5.80)
[2024-11-14 19:19] LABS: Hematocrit 32.8 % (42.0-52.0); Hemoglobin 11.3 g/dl (14.0-18.0); Mean Corpuscular HGB Conc 34.5 g/dl (31.0-36.0); Mean Corpuscular Hemoglobin 29.0 pg (27.0-33.0); Mean Corpuscular Volume 84.1 fL (80.0-98.0)
[2024-11-14 19:26] LABS: Alanine Aminotransferase 202 U/L (0-40); Albumin Level 3.2 g/dL (3.5-5.0); Alkaline Phosphatase 154 U/L (39-117); Anion Gap 14 (12-20); Aspartate Amino Transferase 235 U/L (5-37); Blood Urea Nitrogen 17 mg/dL (9-16); Calcium 8.5 mg/dL (8.4-10.2); Carbon Dioxide 26 mmol/L (22-29); Chloride 100 mmol/L (96-108); Creatinine Clr Calc Pharmacy 83.3; Estimated Glomerular Filt Rate > 60; Lipase 41 U/L (8-78); Potassium 4.1 mmol/L (3.3-5.1); Sodium 136 mmol/L (135-145); Total Protein 6.2 g/dL (6.5-8.0)
[2024-11-14 19:40] LABS: Platelet Count 71 X10*3/uL (160-400); White Blood Count 3.9 X10*3/uL (4.8-10.8)
[2024-11-14 19:54] VITALS: BP 136/72; PULSE 85; RESP 18; TEMP 37.6; O2SAT 94
[2024-11-14 20:06] LABS: Band Neutrophils Percent 2 % (3-5); Basophils Percent Manual 1 % (0-2); Hypochromasia 1+ (5-14) /OIF; Large Platelet PRESENT; Lymphocytes Absolute Manual 0.5 X10*3/uL (1.2-4.9); Lymphocytes Percent Manual 12 % (20-40); Monocytes Absolute Manual 0.4 X10*3/uL (0.1-1.2); Monocytes Percent Manual 10 % (2-11); Neutrophils Absolute Manual 3.0 X10*3/uL (2.0-8.3); Neutrophils Percent Manual 75 % (45-73); RBC Morphology NOTED; Schistocytes 1+ (0-2) /OIF; Toxic Vacuolation PRESENT
[2024-11-14 20:09] LABS: Differential Comment SEE
[2024-11-14 20:14] LABS: Resp Syncy Virus RNA Qual PCR NEGATIVE (Negative); SARS COV2 PCR INHOUSE NEGATIVE (Negative)
[2024-11-14 20:56] LABS: Appearance Urine Clear; Glucose Urine UA Negative (Negative); PH 6.5 (5.0-9.0); Specific Gravity - Urine 1.020 (1.005-1.025); UMIC TRIGGER UACC YES
[2024-11-14] MEDS: 0.9 % Sodium Chloride 2,381.37 ML 2381.37 ML IV (21:01)
[2024-11-14 21:14] LABS: Acetaminophen LAB 7 mcg/mL (<30)
--- NOTE | 2024-11-14 21:46 | PM.IMHP ---
History of Present Illness Date of Service: 11/14/24 Chief Complaint: gen weakness 74-year-old male with no significant past medical history presented to the hospital today with a chief complaint of generalized weakness, malaise, headaches, generalized body aches. Patient mentioned that he has been having these symptoms since Saturday. Mentioned that he has a tick bite which was removed on Saturday on his left arm. Went to the urgent care and was given doxycycline but his symptoms were not improving hence presented to the ER for further evaluation. Denies any chest pain or palpitations. Denies any cough or sputum production. Denies any GI symptoms. Review of all other systems is negative except mentioned above ER course: Per ER team, patient noted to have thrombocytopenia, transaminitis, blood smear showed parapsilosis; tick panel was sent; concern for possible babesiosis-started on atovaquone and azithromycin. [facility] Medical History Melanoma Spinal stenosis Family History Father Industrial accident Mother Diabetes Brother No problems noted. Brother No problems noted. Son No problems noted. Daughter No problems noted. Daughter No problems noted. Daughter No problems noted. Surgical History Hx of colonoscopy History of lumbar laminectomy History of tonsillectomy Social History Housing: House Alcohol intake: current Alcohol intake frequency: a few times a month Patient Tobacco Use Status: Never used Tobacco Tobacco use type: Cigarette e-Cigarette/Vaping Use: Never Used Second Hand Smoke Exposure: No Advance Directives: No Advance Directives Information Provided: No Do you have a plan to hurt others: No Plan service: No Current occupational status: employed and retired Cognitive needs: No Hearing needs: No Vision needs: Yes Meds Allergies Allergy/AdvReac Type Severity Reaction Status Date / Time No Known Allergies Allergy Verified 11/14/24 18:34 Active Medications: Current Medications Azithromycin 500 mg/ Sodium (Chloride) 250 mls @ 125 mls/hr IV ONCE ONE Stop: 11/14/24 23:06 Physical Exam Vital Signs and Narrative: Vital Signs: Last Vital Signs Temp 99.6 F 07/19/25 19:54 Pulse 85 11/14/24 19:54 Resp 18 11/14/24 19:54 BP 136/72 11/14/24 19:54 Pulse Ox 94 11/14/24 19:54 O2 Del Method Room Air 11/14/24 19:54 BMI result Body Mass Index 23.7 Gen: Appears be in no acute distress HEENT: NCAT, Moist mucosa. Pulmonary: Vesicular breath sounds, fair air entry CVS: Normal S1-S2 Abdomen: BS+, Soft, Nontender Extremities: Warm well perfused Neuro: Alert and awake. Results Labs 11/14/24 18:58 11/14/24 18:58 Labs: Laboratory Results - last 24 hr 11/14/24 11/14/24 11/14/24 18:58 19:28 20:49 MCV 84.1 MCH 29.0 MCHC 34.5 RDW 13.7 Plt Count 71 L D MPV 12.5 H Immature Gran % (Auto) Cancelled Neut % (Auto) Cancelled Lymph % (Auto) Cancelled [place] % (Auto) Cancelled Eos % (Auto) Cancelled Baso % (Auto) Cancelled Lymph # (Auto) Cancelled [place] # (Auto) Cancelled Eos # (Auto) Cancelled Baso # (Auto) Cancelled Abs Immat Gran (auto) Cancelled Absolute Neuts (auto) Cancelled Absolute Nucleated RBC 0.000 Nucleated RBC % (auto) 0.0 Neutrophils % (Manual) 75 H Band Neutrophils % 2 L Lymphocytes % (Manual) 12 L Monocytes % (Manual) 10 Basophils % (Manual) 1 Abs Neuts (Manual) 3.0 Lymphocytes # (Manual) 0.5 L Monocytes # (Manual) 0.4 Toxic Vacuolation PRESENT Platelet Estimate DECREASED Large Platelets PRESENT Plt Morphology Comment NOTED RBC Morphology NOTED Hypochromasia 1+ (5-14) Schistocytes 1+ (0-2) Smear Tech's Comments MANUAL DIFF Anion Gap 14 Estim Creat Clear Calc 83.3 Estimated GFR > 60 Random Glucose 129 H Lactic Acid 1.0 Calcium 8.5 Total Bilirubin 0.9 AST 235 H ALT 202 H Alkaline Phosphatase 154 H Total Protein 6.2 L Albumin 3.2 L Lipase 41 Urine Color Dark Yellow Urine Appearance Clear Urine pH 6.5 Ur Specific [place] 1.020 Urine Protein 30 (1+) H Urine Glucose (UA) Negative Urine Ketones Negative Urine Blood Trace H Urine Nitrite Negative Ur Leukocyte Esterase Trace H Urine RBC 3-5 H Urine WBC 0-5 Ur Squamous Epith Cells 0-2 Urine Bacteria None Seen Hyaline Casts 3-5 Acetaminophen 7 Monoscreen Negative Influenza Type A (PCR) NEGATIVE Influenza Type B (PCR) NEGATIVE RSV RNA Qual (PCR) NEGATIVE SARS-CoV-2 RNA (RT-PCR) NEGATIVE Assessment and Plan (1) Babesiosis: Status: Acute Plan 74-year-old male with no significant past medical history presented to the hospital today with a chief complaint of generalized weakness, malaise, headaches, generalized body aches. Noted to have thrombocytopenia, transaminitis, blood smear showing parapsilosis-concerning for babesiosis. Patient was on doxycycline as outpatient Admitted for following Babesiosis: Thrombocytopenia: Transaminitis: Tick panel pending Continue atovaquone, azithromycin ID consulted PT/OT when ready for discharge Monitor for signs of bleeding Will obtain acute hepatitis panel Trend liver enzymes DVT prophylaxis: SCD boots Code status: Full code Quality Stroke Does the patient have a stroke diagnosis?: No VTE Prior VTE?: No VTE Risk Level:: Medical - moderate - high VTE Device Contraindication: Treatment Not Indicated VTE Drug Contraindication: N/A - Med Ordered
[2024-11-14 22:22] VITALS: BP 154/75; PULSE 90; RESP 16; TEMP 36.8; O2SAT 97
[2024-11-14 23:17] VITALS: BP 144/77; PULSE 87; RESP 18; O2SAT 97
[2024-11-14 23:35] VITALS: BP 134/71; PULSE 88; RESP 18; O2SAT 98
[2024-11-15] VITALS: BP 143/79; PULSE 86; RESP 19; O2SAT 94
[2024-11-15] MEDS: 0.9 % Sodium Chloride Flush 3 ML SYRINGE IVFLUSH (00:21)
[2024-11-15] MEDS: Lactated Ringers 1,000 ML 80 ML IVCONT (00:21)
--- NOTE | 2024-11-15 02:59 | MHC.EDTECH ---
Patient resting comfortably. 400cc of yellow urine emptied from his urinal
--- NOTE | 2024-11-15 04:00 | PC.NURSE ---
pt relocated to ed bed 1 to provide a more quiet environment to help with comfort and sleep. RN has requested a hospital bed for the patient due to his height and for comfort. He remains awake, alert, pleasant and without distress noted offering no complaints
[2024-11-15 05:36] VITALS: BP 109/56; PULSE 76; RESP 18; O2SAT 96
--- NOTE | 2024-11-15 06:01 | PC.NURSE ---
Late Entry: RN saw the patient's elevated wbc and heart rate (upon arrival) along with the 30ml/kg and IV antibiotics ordered. RN presented to the [facility] to make them aware that this RN was going to initiate and call a sepsis alert which he was in agreeance with.
[2024-11-15 06:18] LABS: Hematocrit 27.7 % (42.0-52.0); Hemoglobin 9.5 g/dl (14.0-18.0); Imm Gran Abs Auto 0.02 X10*3/uL (0.00-0.03); Imm Gran Pct Auto 0.7 % (0.0-0.4); Lymphocytes Absolute Auto 0.8 X10*3/uL (1.2-4.9); MANUAL DIFF FLAG SCAN; Mean Corpuscular HGB Conc 34.3 g/dl (31.0-36.0); Mean Corpuscular Hemoglobin 29.0 pg (27.0-33.0); Mean Corpuscular Volume 84.5 fL (80.0-98.0); NRBC Abs Auto 0.000 X10*3/uL (0.0-0.012); NRBC Pct Auto 0.0 /100WBC (0.0-0.2); Platelet Count 75 X10*3/uL (160-400); Red Blood Count 3.28 X10*6/uL (4.60-5.80); SCAN SMEAR FLAG 1; White Blood Count 2.9 X10*3/uL (4.8-10.8)
[2024-11-15 06:27] LABS: Alanine Aminotransferase 157 U/L (0-40); Albumin Level 2.5 g/dL (3.5-5.0); Alkaline Phosphatase 118 U/L (39-117); Anion Gap 10 (12-20); Aspartate Amino Transferase 164 U/L (5-37); Blood Urea Nitrogen 14 mg/dL (9-16); Calcium 7.8 mg/dL (8.4-10.2); Carbon Dioxide 28 mmol/L (22-29); Chloride 105 mmol/L (96-108); Creatinine Clr Calc Pharmacy 87.5; Estimated Glomerular Filt Rate > 60; Potassium 4.2 mmol/L (3.3-5.1); Sodium 139 mmol/L (135-145); Total Protein 5.0 g/dL (6.5-8.0)
--- NOTE | 2024-11-15 07:03 | PC.NURSE ---
Addendum entered by Deborah Aguilar RN 11/15/24 08:17: Patient is a 74-year-old male with no significant past medical history presented to the hospital today with a chief complaint of generalized weakness, malaise, headaches, generalized body aches. Noted to have thrombocytopenia, transaminitis, blood smear showing parapsilosis-concerning for babesiosis. Patient was on doxycycline as outpatient. Patient alert and oriented. manager monitoring maintained and NSR noted. Lungs clear bilat. Respirations even and non-labored. Abdomen flat, soft non-tender with positive bowel sounds. Positive pedal pulses with no edema. Denies any complaints at this time. Original Note: Medical History Melanoma Spinal stenosis
[2024-11-15 07:19] VITALS: BP 116/61; PULSE 84; RESP 14; TEMP 36.7; O2SAT 96
--- NOTE | 2024-11-15 08:23 | P.DS_ITS ---
DS: Providers Provider Date of Service: 11/15/24 Date of admission: 11/14/24 21:45 Date of discharge: 11/15/24 Primary care physician: Mira Christie MD DS: Diagnosis Discharge Diagnosis (1) Babesiosis: Status: Acute DS: Summary Hospital Course Hospital Course: from initial hpi: 74-year-old male with no significant past medical history presented to the hospital today with a chief complaint of generalized weakness, malaise, headaches, generalized body aches. Patient mentioned that he has been having these symptoms since Saturday. Mentioned that he has a tick bite which was removed on Saturday on his left arm. Went to the urgent care and was given doxycycline but his symptoms were not improving hence presented to the ER for further evaluation. Denies any chest pain or palpitations. Denies any cough or sputum production. Denies any GI symptoms. Review of all other systems is negative except mentioned above ER course: Per ER team, patient noted to have thrombocytopenia, transaminitis, blood smear showed parapsilosis; tick panel was sent; concern for possible babesiosis- started on atovaquone and azithromycin. 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 Was continued on doxycycline and started on atovaquone and azithromycin. Patient's weakness and gi symtpoms improved and will be discharged home to complete 10 day course. Doxycycline can be discontinued if Lyme negative. should repeat cbc and cmp in 2 weeks to confirm recovery. Time Attestation Discharge Coordination Time (in mins): 32 Quality: Safe Use of Opioids Does Pt have an Active Cancer Diagnosis on the Problem List?: No Quality: Stroke Does the patient have a stroke diagnosis?: No Physical Exam Exam: Exam: General: AO X 3, no acute distress Resp: CTA bilateral, no accessory muscles used CVS: S1,S2,RRR GI: soft, non tender, non distended Neuro: motor grossly intact, alert Psych: appropriate affect, appropriate insight Vital Signs: Vital Signs: Last Vital Signs Temp 98.0 F 11/15/24 07:19 Pulse 84 11/15/24 07:19 Resp 14 11/15/24 07:19 BP 116/61 11/15/24 07:19 Pulse Ox 96 11/15/24 07:19 O2 Del Method Room Air 11/15/24 07:19 BMI result Body Mass Index 23.7 DS: Data Data Completed and Pending Labs on day of discharge: Laboratory Results - last 24 hr 11/14/24 11/14/24 11/14/24 18:58 19:28 20:49 WBC 3.9 L RBC 3.90 L D Hgb 11.3 L D Hct 32.8 L D MCV 84.1 MCH 29.0 MCHC 34.5 RDW 13.7 Plt Count 71 L D MPV 12.5 H Immature Gran % (Auto) Cancelled Neut % (Auto) Cancelled Lymph % (Auto) Cancelled [place] % (Auto) Cancelled Eos % (Auto) Cancelled Baso % (Auto) Cancelled Lymph # (Auto) Cancelled [place] # (Auto) Cancelled Eos # (Auto) Cancelled Baso # (Auto) Cancelled Abs Immat Gran (auto) Cancelled Absolute Neuts (auto) Cancelled Absolute Nucleated RBC 0.000 Nucleated RBC % (auto) 0.0 Neutrophils % (Manual) 75 H Band Neutrophils % 2 L Lymphocytes % (Manual) 12 L Monocytes % (Manual) 10 Basophils % (Manual) 1 Abs Neuts (Manual) 3.0 Lymphocytes # (Manual) 0.5 L Monocytes # (Manual) 0.4 Toxic Vacuolation PRESENT Platelet Estimate DECREASED Large Platelets PRESENT Plt Morphology Comment NOTED RBC Morphology NOTED Hypochromasia 1+ (5-14) Schistocytes 1+ (0-2) Smear Tech's Comments MANUAL DIFF Sodium 136 Potassium 4.1 Chloride 100 Carbon Dioxide 26 Anion Gap 14 BUN 17 H Creatinine 0.84 Estim Creat Clear Calc 83.3 Estimated GFR > 60 Random Glucose 129 H Lactic Acid 1.0 Calcium 8.5 Total Bilirubin 0.9 AST 235 H ALT 202 H Alkaline Phosphatase 154 H Total Protein 6.2 L Albumin 3.2 L Lipase 41 Urine Color Dark Yellow Urine Appearance Clear Urine pH 6.5 Ur Specific [place] 1.020 Urine Protein 30 (1+) H Urine Glucose (UA) Negative Urine Ketones Negative Urine Blood Trace H Urine Nitrite Negative Ur Leukocyte Esterase Trace H Urine RBC 3-5 H Urine WBC 0-5 Ur Squamous Epith Cells 0-2 Urine Bacteria None Seen Hyaline Casts 3-5 Acetaminophen 7 Monoscreen Negative Influenza Type A (PCR) NEGATIVE Influenza Type B (PCR) NEGATIVE RSV RNA Qual (PCR) NEGATIVE SARS-CoV-2 RNA (RT-PCR) NEGATIVE 11/15/24 05:33 WBC 2.9 L RBC 3.28 L Hgb 9.5 L Hct 27.7 L MCV 84.5 MCH 29.0 MCHC 34.3 RDW 13.8 Plt Count 75 L MPV 12.2 Immature Gran % (Auto) 0.7 H Neut % (Auto) 52.9 Lymph % (Auto) 27.3 [place] % (Auto) 18.4 H Eos % (Auto) 0.0 Baso % (Auto) 0.7 Lymph # (Auto) 0.8 L [place] # (Auto) 0.5 Eos # (Auto) 0.0 Baso # (Auto) 0.0 Abs Immat Gran (auto) 0.02 Absolute Neuts (auto) 1.6 L Absolute Nucleated RBC 0.000 Nucleated RBC % (auto) 0.0 Neutrophils % (Manual) Band Neutrophils % Lymphocytes % (Manual) Monocytes % (Manual) Basophils % (Manual) Abs Neuts (Manual) Lymphocytes # (Manual) Monocytes # (Manual) Toxic Vacuolation Platelet Estimate Large Platelets Plt Morphology Comment RBC Morphology Hypochromasia Schistocytes Smear Tech's Comments VERIFIED Sodium 139 Potassium 4.2 Chloride 105 Carbon Dioxide 28 Anion Gap 10 L BUN 14 Creatinine 0.80 Estim Creat Clear Calc 87.5 Estimated GFR > 60 Random Glucose 104 Lactic Acid Calcium 7.8 L D Total Bilirubin 0.6 AST 164 H ALT 157 H Alkaline Phosphatase 118 H Total Protein 5.0 L Albumin 2.5 L Lipase Urine Color Urine Appearance Urine pH Ur Specific [place] Urine Protein Urine Glucose (UA) Urine Ketones Urine Blood Urine Nitrite Ur Leukocyte Esterase Urine RBC Urine WBC Ur Squamous Epith Cells Urine Bacteria Hyaline Casts Acetaminophen Monoscreen Influenza Type A (PCR) Influenza Type B (PCR) RSV RNA Qual (PCR) SARS-CoV-2 RNA (RT-PCR) Discharge Plan Discharge Anticipated Discharge Date/Time: 11/15/24 08:20 Patient Disposition: Home, Self-Care Discharge Diagnosis: tick borne parasitemia Referrals: Mira Ramírez MD [Primary Care Provider, Internal Medicine] - 1 Week Discharge Medications: New atovaquone [Mepron] 750 mg/5 mL Suspension 750 mg PO Q12H 9 Days Qty: 90 0RF azithromycin 500 mg tablet 500 mg PO DAILY 9 Days Qty: 9 0RF Continued amitriptyline 25 mg tablet 25 mg PO DAILY Qty: 90 8RF doxycycline hyclate 100 mg capsule 100 mg PO BID Discharge Orders: Discharge Order (Routine); Ordered 11/15/24 Ordered By: Humphrey Bennett Diet: Advance to usual diet Activity on Discharge: As tolerated Stand Alone Forms: Patient Portal Discharge page Print Language: Spanish Other Ambulatory Orders: Complete Blood Count Auto Diff (Routine) Timeframe: 2 Weeks Facility: [facility] - Location: Laboratory Ordered By: Humphrey Bennett Comprehensive Met. Panel (Routine) Timeframe: 2 Weeks Facility: [facility] - Location: Laboratory Ordered By: Humphrey Bennett Care Plan Goals: recovery Health Concerns: tick borne parasitemia Plan of Treatment: continue doxycyline, azithro, and atovaquon (10 day total), can stop doxycycline if lyme negative return if worsening symptoms would repeat cbc in 2 weeks to confirm recovery Assessment: see above
[2024-11-15 08:57] VITALS: BP 116/61; PULSE 84; RESP 14; TEMP 36.7; O2SAT 96
[2024-11-16 08:04] LABS: HBS Num1 0.00 mIU/mL (0-7.99); HBc Num1 0.18 S/CO (0.00-0.79); HBsAGNum1 0.32 S/CO (0.00-0.99); Hepatitis A Antibody IgM 0.13 Index (0-0.79); Hepatitis B Surface Antigen Negative (Negative); ~HepC Num1 0.33 S/CO (0.00-0.79); ~Hepatitis A Antibody IgM Nonreactive (Nonreactive); ~Hepatitis B Surface Antibody NONREACTIVE (Nonreactive); ~Hepatitis C Antibody Nonreactive (Nonreactive)
[2024-11-16 20:57] LABS: Lyme Blot 0.96 index
[2024-11-17 11:01] LABS: Lyme Abs Screen EQUIVOCAL
[2024-11-17 12:54] LABS: Lyme Disease DNA PCR NOT DETECTED (NOT DETECTED)
[2024-11-17 21:48] LABS: A. Phagocytphilium DNA,RT-PCR NOT DETECTED (NOT DETECTED); Babesia Microti DNA, RT-PCR DETECTED (NOT DETECTED); Borrelia Miyamotoi,DNA RT-PCR NOT DETECTED (NOT DETECTED); E.Chaffeensis DNA RT-PCR NOT DETECTED (NOT DETECTED); Lyme(Borrelia ssp)DNA RT-PCR NOT DETECTED (NOT DETECTED)
[2024-11-20 23:08] LABS: 39KD (IgG) Band NON-REACTIVE; 41KD (IgG) Band REACTIVE; Lyme IgG Blot Interp NEGATIVE (NEGATIVE); Lyme IgM Blot Interp NEGATIVE (NEGATIVE)
== END 2024-11-15 08:53 | disposition home or self-care (01) | DRG 868 ==
LOC: HO.ED 21:22 → HO.EDOVER 21:49
PROVIDERS: Physician Assistant; Admitting Provider Hospitalist; Emergency Provider Emergency Medicine; PCP Internal Medicine; Visit Provider Internal Medicine
DX: B60.00 Babesiosis, unspecified (principal); D61.818 Other pancytopenia; Z20.822 Contact with and (suspected) exposure to COVID-19; Z79.899 Other long term (current) drug therapy
CPT/HCPCS: 36415; 71046; 80053; 80143; 81001; 83605; 83690; 85007; 85025; 85027; 86308; 86617; 86618; 86704; 86706; 86709; 86803; 87040; 87340; 87468; 87469; 87478; 87484; 87637; 87798; 93005; 99285; J0456; J1271; J1650; J7120

== ENCOUNTER → 2024-11-14 18:41 | Outpatient (BNV) | payer MEDICARE, OTHER, SELFPAY | PROVIDERS: PCP Internal Medicine; Visit Provider Nuclear Medicine | DX: R07.9 Chest pain, unspecified (principal) | CPT/HCPCS: 71046 ==

== ENCOUNTER → 2024-11-14 18:41 | Outpatient (BNV) | payer MEDICARE, OTHER, SELFPAY | PROVIDERS: Admitting Provider Hospitalist; Emergency Provider Emergency Medicine; PCP Internal Medicine; Visit Provider Internal Medicine | DX: R53.1 Weakness (principal) | CPT/HCPCS: 93010 ==

== ENCOUNTER → 2024-11-14 21:45 | Outpatient (BNV) | payer MEDICARE, OTHER, SELFPAY | PROVIDERS: Admitting Provider Hospitalist; Emergency Provider Emergency Medicine; PCP Internal Medicine; Visit Provider Internal Medicine | DX: B60.00 Babesiosis, unspecified (principal) | CPT/HCPCS: 99223; 99239 ==

== ENCOUNTER 2024-11-19 08:49 | Outpatient (REF) | payer MEDICARE, OTHER, SELFPAY ==
[2024-11-19 13:29] LABS: Hematocrit 34.6 % (42.0-52.0); Hemoglobin 11.1 g/dl (14.0-18.0); Imm Gran Abs Auto 0.01 X10*3/uL (0.00-0.03); Imm Gran Pct Auto 0.2 % (0.0-0.4); Lymphocytes Absolute Auto 1.3 X10*3/uL (1.2-4.9); MANUAL DIFF FLAG SCAN; Mean Corpuscular HGB Conc 32.1 g/dl (31.0-36.0); Mean Corpuscular Hemoglobin 28.1 pg (27.0-33.0); Mean Corpuscular Volume 87.6 fL (80.0-98.0); NRBC Abs Auto 0.000 X10*3/uL (0.0-0.012); NRBC Pct Auto 0.0 /100WBC (0.0-0.2); Platelet Count 248 X10*3/uL (160-400); Red Blood Count 3.95 X10*6/uL (4.60-5.80); SCAN SMEAR FLAG 1; White Blood Count 4.2 X10*3/uL (4.8-10.8)
[2024-11-19 13:49] LABS: Alanine Aminotransferase 255 U/L (0-40); Albumin Level 3.4 g/dL (3.5-5.0); Alkaline Phosphatase 137 U/L (39-117); Anion Gap 10 (12-20); Aspartate Amino Transferase 157 U/L (5-37); Blood Urea Nitrogen 16 mg/dL (9-16); Calcium 8.6 mg/dL (8.4-10.2); Carbon Dioxide 30 mmol/L (22-29); Chloride 103 mmol/L (96-108); Estimated Glomerular Filt Rate > 60; Potassium 4.1 mmol/L (3.3-5.1); Sodium 139 mmol/L (135-145); Total Protein 6.6 g/dL (6.5-8.0)
== END 2024-11-19 08:50 | disposition home or self-care (01) ==
LOC: HO.HMGCLDS 08:49
PROVIDERS: Internal Medicine; PCP Internal Medicine; Visit Provider Physician Assistant
DX: B60.00 Babesiosis, unspecified (principal); D69.6 Thrombocytopenia, unspecified; Z13.89 Encounter for screening for other disorder
CPT/HCPCS: 36415; 80053; 81003; 82248; 85025; 99212

== ENCOUNTER 2024-11-19 08:49 | Outpatient (AMB) | payer MEDICARE, OTHER, SELFPAY ==
--- OUTSIDE RECORDS SUMMARY | 2024-11-19 09:15 | XMS_ITS | Patient Health Record ---
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 Role Phone Bon Ha MD Primary Care Provider Ositoa Daniel Gonzalez Unavailable [phone] Allergies No Known Allergies Reason For Referral [...] Problem Status W/U Status Risk Notes Problem [id number] Colon cancer screening (Z12.11) Active confirmed Problem Diverticulosis o f large intestine without perforation or abscess without bleeding (K57.30) Active confirmed Problem [id number] Preprocedural examination (Z01.818) Active confirmed Plan Of [...] Date MEDICARE OF [place] [address] [place] [address] [id number] YEMEAGHAN TORREZ Self - patient is the insured [facility] INDEMNITY [address] [place] [address] [id number] MEAGHAN YE Self - patient is the insured Medical (General) History Medical History History ICD Code Diverticulosis, with a history of divert iculitis in 2006. Denies IN,DM,CVA,Lung disease,renal dise ase Neg. screening colonoscopy in 2000 and i n 02/2012-diverticulosis Negative lab work for celiac disease in 2011 EGD 2012 with minimal HH and benign gloria sourav polyp Surgical History Surgery Date(Month/Year) Spinal stenosis Melanoma in left forearm 2014
--- NOTE | 2024-11-19 09:19 | AM.OFFWIN_ITS ---
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 - [place] [facility] [place] a diagno sis of babesiosis, treated with doxycycline, azithromycin, and atovaquone. - The patient reports improved appetite and resolution of fever, but persistent fatigue. - Suspected Lyme disease with pending se rology results. - Developed a rash on the upper back, tr eated with Benadryl, which helped. - Frequent urination, urinating 10-12 ti mes a night without pain or fevers. - Reports mild swelling in feet - Mild hypotension with a reading of 100 /50 mmHg. - Low hemoglobin and platelet count and albumin, elevated liver enzymes while in the hospital. - Random glucose levels slightly elevate d, possibly due to medication effects. - Has follow up with PCP on 11/27, is conc erned that he has no continuity of care - has many questions. Physical Exam General: Cooperative, healthy appearing, comfortable, no acute distress and well developed Orientation: Patient oriented x3 Limitations: No limitations Head: Normal to inspection Ears: Hearing grossly normal bilaterally Nose: Normal External nose present Face and sinus: Normal facial exam Mouth: Normal, moist oral mucosa Eyes: Appearance normal, both eyes and all related structures Neck: Normal visual inspection and Yes full ROM Respiratory: Normal respiratory effort and able to speak in complete sentences. Skin: slight maculopapular (8-10 spots) rash upper right back, no hives, warmth or drainage noted Neuro: Patient oriented x3 Extremities: Moving all extremities normally, bilateral feet with mild edema PFSH Medical History Melanoma Spinal stenosis Surgical History Hx of colonoscopy History of lumbar laminectomy History of tonsillectomy Family History Father Industrial accident Mother Diabetes Brother No problems noted. Brother No problems noted. Son No problems noted. Daughter No problems noted. Daughter No problems noted. Daughter No problems noted. Social History Housing: House Alcohol intake: current Alcohol intake frequency: a few times a month Patient Tobacco Use Status: Never used Tobacco Tobacco use type: Cigarette e-Cigarette/Vaping Use: Never Used Second Hand Smoke Exposure: No service: No Current occupational status: employed and retired Cognitive needs: No Hearing needs: No Vision needs: Yes Review of Systems Const All systems reviewed & are unremarkable except as noted in HPI and below Physical Exam Vital Signs: Last Vital Signs Temp 98.2 F 11/19/24 09:21 Pulse 80 11/19/24 09:21 BP 100/52 L 11/19/24 09:21 Pulse Ox 98 11/19/24 09:21 Oxygen Delivery Method Room Air 11/19/24 09:21 BMI result Body Mass Index 20.3 Results AMB Urinalysis, Automated UA Leukoctes 0 Golden/uL Last Edit by Sabine Gallego MA on 11/19/24 10:07 UA Nitrite Negative Last Edit by Sabine Gallego MA on 11/19/24 10:07 UA Urobilinogen 0.2 mg/dL Last Edit by Sabine Gallego MA on 11/19/24 10:07 UA Protein 0 mg/dL Last Edit by Sabine Gallego MA on 11/19/24 10:07 UA pH 6.0 Last Edit by Sabine Gallego MA on 11/19/24 10:07 UA Blood 0 Chris/uL Last Edit by Sabine Gallego MA on 11/19/24 10:07 UA Specific [place] 1.010 Last Edit by Sabine Gallego MA on 11/19/24 10:07 UA Ketone Negative Last Edit by Sabine Gallego MA on 11/19/24 10:07 UA Bilirubin 0 mg/dL Last Edit by Sabine Gallego MA on 11/19/24 10:07 UA Glucose 0 mg/dL Last Edit by Sabine Gallego MA on 11/19/24 10:07 Assessment & Plan Assessment & Plan (1) Babesiosis: Code(s): B60.00 - Babesiosis, unspecified Plan: Plan Patient was informed and verbally consented to the use of an ambient scribe for clinic note documentation during this visit Babesiosis - Continue current medications: doxycycline, azithromycin, and atovaquone. Can DC Doxy if it ends up being negative, it is pending. - Await pending Lyme serology results to confirm diagnosis. - Continue symptomatic treatment with antihistamines like Benadryl. - Monitor for any changes or worsening of the rash. - UA negative for infection or blood - Messaged ID doctor to call patient to review normal side effects of polypharmacy of antibiotics/antiparasitics; also has other questions. - Monitor blood pressure and assess for any signs of infection. - Monitor liver function tests to track recovery from infection, will repeat today. - Monitor albumin levels and address underlying causes such as infection. - Repeat complete blood count to monitor hemoglobin and platelet levels. - Assess for any bleeding or bruising that may indicate worsening condition. - Monitor blood glucose levels to assess for potential diabetes, had one elevated POC in ED of 129, unlikely cause of polyuria. (2) Thrombocytopenia: Code(s): D69.6 - Thrombocytopenia, unspecified Plan: as above Orders: Orders Complete Blood Count Auto Diff Today B60.00 - Babesiosis, unspecified, D69.6 - Thrombocytopenia, unspecified Comprehensive Met. Panel Today B60.00 - Babesiosis, unspecified, D69.6 - Thrombocytopenia, unspecified Liver Panel Today B60.00 - Babesiosis, unspecified, D69.6 - Thrombocytopenia, unspecified AMB Urinalysis Automated Today Z13.9 - Encounter for screening, unspecified Coding Level of Care Code Est Pt Level 4 (43481) Diagnoses Babesiosis B60.00 Thrombocytopenia D69.6
[2024-11-19 09:21] VITALS: BP 100/52; PULSE 80; TEMP 36.8; O2SAT 98; BMI 20.3
== END 2024-11-19 10:53 | disposition home or self-care (01) ==
PROVIDERS: PCP Internal Medicine; Visit Provider Physician Assistant
DX: B60.00 Babesiosis, unspecified (principal); D69.6 Thrombocytopenia, unspecified; Z13.9 Encounter for screening, unspecified

== ENCOUNTER 2024-11-23 16:09 | Outpatient (AMB) | payer MEDICARE, OTHER, SELFPAY ==
--- NOTE | 2024-11-23 16:12 | A.OFFPC_ITS ---
Vital Signs 11/23/24 16:14 Height 6 ft 2 in Weight 153 lb BMI 19.6 BP 122/76 Blood Pressure Location Rt brachial Position Sitting Pulse 84 Pulse Source Pulse Oximeter Pulse Oximetry (%) 97 Oxygen Delivery Method Room Air Intake Visit Reasons: [facility] [place]13 heart palpitations Turkey Cleaner Required: No Accompanied by: Spouse Allergies No Known Allergies Allergy (Verified 11/23/24 16:24) Medication List - Last Reconciled 11/23/24 by Mira Christie MD amitriptyline 25 mg PO DAILY atovaquone (Mepron) 750 mg (5 mL) PO Q12H 9 days Tobacco use date assessed: 05/01/24 Fall risk assessment: No Falls in past year Last assessed Fall Risk: 11/23/24 Dental Screening Dental Screen Date: 05/01/24 HPI TCM TCM Information Date of Discharge 11/15/24 Discharged From [facility] Interactive Contact Date (Reference documentation from this date) 11/16/24 HPI Comments History of Present Illness Details The patient is a 74-year-old male presenting with transfer of care management following hospital discharge due to babesiosis. He was bitten by a tick on his left arm, which led to symptoms of generalized weakness, malaise, headaches, and body aches. Initial treatment with doxycycline at urgent care did not improve his symptoms, prompting a visit to the emergency room where he was diagnosed with babesiosis and Lyme disease. The patient was admitted due to pancytopenia with hemolytic anemia, a complication of the tick-borne infection. He was treated with atovaquone and azithromycin, completing courses of azithromycin and doxycycline, and continues on atovaquone. His blood work showed improvement with white blood cell count increasing from 2.9 to 4.2, hemoglobin from 9.5 to 11.1, and platelets normalizing from 75 to 248. The patient also experienced monocytosis, which remains at 20.7, and transaminitis with AST decreasing from 164 to 157 and ALT increasing from 157 to 255. He had hypocalcemia that resolved and continues to have low but improving albumin levels. He reports feeling more energetic than before, although he still experiences nocturia. [facility] Medical History (Updated 11/23/24 @ 20:36 by Mira Christie MD) Melanoma Spinal stenosis Surgical History Hx of colonoscopy History of lumbar laminectomy History of tonsillectomy Family History Father Industrial accident Mother Diabetes Brother No problems noted. Brother No problems noted. Son No problems noted. Daughter No problems noted. Daughter No problems noted. Daughter No problems noted. Social History Housing: House Alcohol intake: current Alcohol intake frequency: a few times a month Patient Tobacco Use Status: Never used Tobacco Tobacco use type: Cigarette e-Cigarette/Vaping Use: Never Used Second Hand Smoke Exposure: No service: No Current occupational status: employed and retired Cognitive needs: No Hearing needs: No Vision needs: Yes Questionnaire PHQ-9 Over the last 2 weeks, how often have you been bothered by any of the following problems? 1. Little interest or pleasure in doing things: not at all 2. Feeling down, depressed, or hopeless: not at all 3. Trouble falling or staying asleep, or sleeping too much: not at all 4. Feeling tired or having little energy: not at all 5. Poor appetite or overeating: not at all 6. Feeling bad about yourself - or that you are a failure or have let yourself or your family down: not at all 7. Trouble concentrating on things, such as reading the newspaper or watching television: not at all 8. Moving or speaking so slowly that other people could have noticed. Or the opposite - being so fidgety or restless that you have been moving around a lot more than usual: not at all 9. Thoughts that you would be better off or of hurting yourself in some way: not at all Total score: 0 Depression Screening Interpretation: Negative Depression Screening Done: Yes 61026 - PHQ-9 Billing: Yes Source: Developed by Drs. Daniel Esquivel, Rita Piña, Skinny Bishop and colleagues, with an educational alis from [facility]. Thrive Questionnaire Date Thrive assessed: 06/22/24 I am a: Patient What is your living situation today?: I have a steady place to live Within the past 12 months, did the food you bought not last and you didn't have the money to get more?: Never true Within the past 12 months, did you worry whether your food would run out before you got money to buy more?: Never true Do you have trouble paying for medicines?: No Do you have trouble getting transportation to medical appointments?: No Do you have trouble paying your heating and electricity bill?: No Do you have trouble taking care of your child, family member or friend?: No Do you have trouble with day-to-day activities such as bathing, preparing meals, shopping, managing finances, etc.?: No Are you currently unemployed and looking for a job?: No Are you interested in more education?: No Please select the resources that you would like help with: None Currently or been in a relationship where the following occur: No concerns reported THRIVE Score: 0 AUDIT C Alcohol Use Questionnaire (AUDIT-C) 1. How often do you have a drink containing alcohol?: Monthly or less 2. How many drinks containing alcohol do you have on a typical day when you are drinking?: 1 or 2 3. How often do you have six or more drinks on one occasion?: Never Total Score: 1 ED-7 AMB Questionnaire ED-7 Date ED - 7 assessed: 11/23/24 Feeling nervous, anxious, or on edge: 0 = Not at all Not being able to stop or control worryin = Not at all Worrying too much about different things: 0 = Not at all Trouble relaxin = Not at all Being so restless that it is hard to sit still: 0 = Not at all Becoming easily annoyed or irritable: 0 = Not at all Feeling afraid as if something awful might happen: 0 = Not at all Total ED-7 score (0-4 normal; 5-9 mild; 10-14 moderate; 15-21 severe): 0 Source: Developed by Drs. Daniel Esquivel, Rita Piña, Skinny Bishop and colleagues, with an educational alis from [facility]. ED-7 Assessment Billing ED-7 Assessment Tool: ED-7 Assessment 20898 Review of Systems Const All systems reviewed & are unremarkable except as noted in HPI and below Card Denies chest pain at rest, Denies chest pain with activity, Denies edema, Denies irregular heart rhythm, Denies claudication, Denies dyspnea, Denies dyspnea on exertion, Denies orthopnea, Denies paroxysmal nocturnal dyspnea and Denies slow heart rate Resp Denies cough, Denies dyspnea and Denies dyspnea on exertion GI Denies abdominal pain, Denies change in bowel habits, Denies excessive flatus, Denies nausea and Denies vomiting Denies urinary hesitancy, Denies urinary incontinence and Denies urinary urgency Musc Denies abnormal gait, Denies atrophy, Denies deformity and Denies limited range of motion Skin/Breast Denies bleeding lesions, Denies changing lesions and Denies rash Neuro Denies abnormal gait and Denies lack of coordination Physical exam (Primary Care) Vital Signs: Last Vital Signs Pulse 84 11/23/24 16:14 BP 122/76 11/23/24 16:14 Pulse Ox 97 11/23/24 16:14 Oxygen Delivery Method Room Air 11/23/24 16:14 BMI result Body Mass Index 19.6 Tobacco/Smoking Status: Tobacco use Status Tobacco use date assessed 05/01/24 11/23/24 16:20 Patient Tobacco Use Status Never used Tobacco 11/23/24 16:20 Tobacco use type Cigarette 11/23/24 16:20 e-Cigarette/Vaping Use Never Used 11/23/24 16:20 PHQ-9: PHQ-9 Score PHQ-9: Total score 0 11/23/24 16:39 Depression Screening Interpretation: Negative Thrive Assessment: Date of Thrive Assessment Date Thrive assessed 06/22/24 11/23/24 16:20 Currently or been in a relationship where the following occur: No concerns reported Resp Effort & Inspection: normal respiratory effort Auscultation: clear to auscultation bilaterally Cardio Jugular venous distension: no JVD Rate: regular rate Rhythm: regular rhythm Heart sounds: S1 normal heart sound present and S2 normal heart sound present Extrem General: Yes full ROM Coding Level of Care Code TCM Mod MDM <= 14 Days Diagnoses Hospital discharge follow-up Z09 Thrombocytopenia D69.6 Babesiosis B60.00 Transaminitis R74.01 Additional Codes ED-7 Assessment Billing - ED-7 Assessment Tool: ED-7 Assessment 12149 ([id number]) PHQ-9 - 48777 - PHQ-9 Billing: Yes ([id number]) Time Spent (min) 26 Assessment & Plan Assessment & Plan (1) Hospital discharge follow-up: Code(s): Z09 - Encounter for follow-up examination after completed treatment for conditions other than malignant neoplasm Category: Medical (2) Thrombocytopenia: Code(s): D69.6 - Thrombocytopenia, unspecified Category: Medical (3) Babesiosis: Code(s): B60.00 - Babesiosis, unspecified Category: Medical (4) Transaminitis: Code(s): R74.01 - Elevation of levels of liver transaminase levels Category: Medical Plan The patient will continue on atovaquone for the treatment of babesiosis, with close monitoring of blood work to assess the resolution of transaminitis and hemoglobin levels. Follow-up appointments will be scheduled to evaluate the patient's progress and adjust treatment as necessary. Orders: Orders Complete Blood Count Auto Diff Today D64.9 - Anemia, unspecified Comprehensive Met. Panel Today R74.01 - Elevation of levels of liver transaminase levels PSA,Total (Free>4and<10) Today R35.1 - Nocturia
[2024-11-23 16:14] VITALS: BP 122/76; PULSE 84; O2SAT 97; BMI 19.6
--- OUTSIDE RECORDS SUMMARY | 2024-11-23 16:14 | XMS_ITS | Patient Health Record ---
Author Organization [facility] Address [address] [place] [id number] Care Team Providers Care Chain Repairer Name Role Phone Bon Ha MD Primary Care Provider Ositoa Daniel Gonzalez Unavailable [phone] Allergies No Known Allergies Reason For Referral [...] Problem Status W/U Status Risk Notes Problem [id number] Colon cancer screening (Z12.11) Active confirmed Problem Diverticulosis o f large intestine without perforation or abscess without bleeding (K57.30) Active confirmed Problem [id number] Preprocedural examination (Z01.818) Active confirmed Plan Of [...] Date MEDICARE OF [place] [address] [place] [address] [id number] YEMEAGHAN TORREZ Self - patient is the insured [facility] [employer] [address] [place] [address] [id number] MEAGHAN YE Self - patient is the [...]
== END 2024-11-23 16:40 | disposition home or self-care (01) ==
PROVIDERS: PCP Internal Medicine; Visit Provider Internal Medicine
DX: D69.6 Thrombocytopenia, unspecified (principal); Z09 Encounter for follow-up examination after completed treatment for conditions other than malignant neoplasm; B60.00 Babesiosis, unspecified; R74.01 Elevation of levels of liver transaminase levels

== ENCOUNTER → 2024-11-23 16:09 | Outpatient (BNVA) | payer MEDICARE, OTHER, SELFPAY | PROVIDERS: PCP Internal Medicine; Visit Provider Internal Medicine | DX: Z09 Encounter for follow-up examination after completed treatment for conditions other than malignant neoplasm (principal); D69.6 Thrombocytopenia, unspecified; R74.01 Elevation of levels of liver transaminase levels; B60.00 Babesiosis, unspecified | CPT/HCPCS: 96127; 99495 ==

== ENCOUNTER 2024-12-07 06:14 | Outpatient (REF) | payer MEDICARE, OTHER, SELFPAY ==
--- OUTSIDE RECORDS SUMMARY | 2024-12-07 06:17 | XMS_ITS | Patient Health Record ---
Author Organization [facility] Address [address] [place] [id number] Care Team Providers Care Project Manager Industrial Name Role Phone Bon Ha MD Primary Care Provider Ositoa Daniel Gonzalez Unavailable [phone] Allergies No Known Allergies Reason For Referral [...] Problem Status W/U Status Risk Notes Problem [id number] Colon cancer screening (Z12.11) Active confirmed Problem Diverticulosis o f large intestine without perforation or abscess without bleeding (K57.30) Active confirmed Problem [id number] Preprocedural examination (Z01.818) Active confirmed Plan Of [...] Date MEDICARE OF [place] [address] [place] [address] [id number] YEMEAGHAN TORREZ Self - patient is the insured [facility] [employer]MN[employer] [address] [place] [address] [id number] MEAGHAN YE Self - patient is the insured Medical (General) History Medical History History ICD Code Diverticulosis, with a history of divert iculitis in 2006. Denies GA,DM,CVA,Lung disease,renal dise ase Neg. screening colonoscopy in 2000 and i n 02/2012-diverticulosis Negative lab work for celiac disease in 2011 EGD 2012 with minimal HH and benign gloria sourav polyp Surgical History Surgery Date(Month/Year) Spinal stenosis Melanoma in left forearm 2014
[2024-12-07 06:55] LABS: MANUAL DIFF FLAG NO
[2024-12-07 07:35] LABS: Hematocrit 38.9 % (42.0-52.0); Hemoglobin 12.6 g/dl (14.0-18.0); Imm Gran Abs Auto 0.01 X10*3/uL (0.00-0.03); Imm Gran Pct Auto 0.2 % (0.0-0.4); Lymphocytes Absolute Auto 1.5 X10*3/uL (1.2-4.9); Mean Corpuscular HGB Conc 32.4 g/dl (31.0-36.0); Mean Corpuscular Hemoglobin 29.2 pg (27.0-33.0); Mean Corpuscular Volume 90.3 fL (80.0-98.0); NRBC Abs Auto 0.000 X10*3/uL (0.0-0.012); NRBC Pct Auto 0.0 /100WBC (0.0-0.2); Platelet Count 214 X10*3/uL (160-400); Red Blood Count 4.31 X10*6/uL (4.60-5.80); White Blood Count 4.0 X10*3/uL (4.8-10.8)
[2024-12-07 08:18] LABS: Alanine Aminotransferase 41 U/L (0-40); Albumin Level 3.7 g/dL (3.5-5.0); Alkaline Phosphatase 91 U/L (39-117); Anion Gap 9 (12-20); Aspartate Amino Transferase 42 U/L (5-37); Blood Urea Nitrogen 17 mg/dL (9-16); Calcium 8.6 mg/dL (8.4-10.2); Carbon Dioxide 29 mmol/L (22-29); Chloride 107 mmol/L (96-108); Estimated Glomerular Filt Rate > 60; Potassium 4.3 mmol/L (3.3-5.1); Sodium 141 mmol/L (135-145); Total Protein 6.6 g/dL (6.5-8.0)
[2024-12-07 08:28] LABS: PSA,Total (Free>4and<10) 5.46 ng/mL (0.00-4.00)
[2024-12-09 11:54] LABS: Free Prostate Spec Ag 0.9 ng/mL; Percent Free Prostate Spec Ag 21 % (calc) (>25)
== END 2024-12-07 06:15 | disposition home or self-care (01) ==
LOC: HO.LAB 06:14
PROVIDERS: Physician Assistant; PCP Internal Medicine; Visit Provider Internal Medicine
DX: R35.1 Nocturia (principal); B60.00 Babesiosis, unspecified; D69.6 Thrombocytopenia, unspecified; R74.01 Elevation of levels of liver transaminase levels; D64.9 Anemia, unspecified; Z12.5 Encounter for screening for malignant neoplasm of prostate
CPT/HCPCS: 36415; 80053; 84153; 84154; 85025

== ENCOUNTER 2025-02-03 09:19 | Outpatient (AMB) | payer MEDICARE, OTHER, SELFPAY ==
--- NOTE | 2025-02-03 09:19 | A.OFFVIS_ITS ---
Intake Visit Reasons: Elevated PSA, Nocturia Intake Note: New Patient is present for elevated PSA Nocturia Urology Rx:Amitryptyline PVR:20 mls Blood Thinners: none Imaging completed: none Labs done 12/07/24 PSA 5.46 Field Reimbursement Manager Required: No Accompanied by: Self / Same As Patient Allergies No Known Allergies Allergy (Verified 02/03/25 09:23) HPI Comments Details: Erasmo is a pleasant male. He is a patient of Dr. Christie. He is seen for the following urological conditions - bladder outlet obstruction - elevated PSA Lower urinary tract symptoms Progressive restriction of stream Nocturia x2 PSA - 06/20 2.3, 07/21 4.4, 12/21 4.2 21% Trial dutasteride 4 month follow-up PSA PFSH Medical History Melanoma Spinal stenosis Surgical History Hx of colonoscopy History of lumbar laminectomy History of tonsillectomy Family History Father Industrial accident Mother Diabetes Brother No problems noted. Brother No problems noted. Son No problems noted. Daughter No problems noted. Daughter No problems noted. Daughter No problems noted. Social History Housing: House Alcohol intake: current Alcohol intake frequency: a few times a month Patient Tobacco Use Status: Never used Tobacco Tobacco use type: Cigarette e-Cigarette/Vaping Use: Never Used Second Hand Smoke Exposure: No service: No Current occupational status: employed and retired Cognitive needs: No Hearing needs: No Vision needs: Yes Review of Systems Const Denies chills and Denies fever(s) Card Reports no additional complaints and Denies syncope Resp Denies cough GI Denies abdominal pain and Denies heartburn Reports as per HPI and Denies change in libido Neuro Denies syncope Psych Denies change in libido Endo Denies change in libido Physical Exam Const General: cooperative, healthy appearing, comfortable and no acute distress Orientation/consciousness: patient oriented x3 HEENT Face and sinus: Yes normal facial exam Mouth: moist mucous membranes Neck Neck: Yes normal visual inspection, Yes full ROM and Yes trachea midline Chest Chest palpation & inspection: normal inspection of the chest Resp Effort & Inspection: normal respiratory effort, able to speak in complete sentences and no respiratory distress GI Inspection: Yes normal to inspection Back/Spine/Pelvis Cervical Spine: normal cervical lordosis Thoracic/Lumbar Spine: thoracic and lumbar spine normal to inspection Skin General skin exam: no rashes or lesions noted Neuro General: patient oriented x3, gait normal, tone normal and moves all extremities Extrem General: Yes normal to inspection and Yes capillary refill normal Assessment & Plan Assessment & Plan (1) Bladder outlet obstruction: Code(s): N32.0 - Bladder-neck obstruction Category: Medical (2) PSA elevation: Code(s): R97.20 - Elevated prostate specific antigen [PSA] Category: Medical Plan Trial dutasteride Orders: Orders US bladder Today N32.0 - Bladder-neck obstruction, R97.20 - Elevated prostate specific antigen [PSA] PSA,Total (Free>4and<10) 4 Months R97.20 - Elevated prostate specific antigen [PSA] Medications: New dutasteride 0.5 mg PO DAILY 90 caps 1RF 90 days Patient Instructions: This note is constructed using voice recognition software. While every effort has been made to ensure accuracy produce runner errors may have been included. Imaging studies, laboratory and physical exam results were discussed and reviewed in detail. No major barriers to patient understanding were identified. An opportunity to ask questions regarding the treatment plan was provided. All questions were answered. The patient expressed understanding and agreement with the above treatment plan. The patient is aware they should contact our office by phone for worsening of their current condition or the appearance of new urologic symptoms. Compliance is encouraged with any medications and followup testing that is ordered. It is a privilege to participate in the urologic care of your patient. If you have any questions or concerns regarding treatment for the above conditions, or other urologic issues, please do not hesitate to contact me. The office telephone contact is [phone]. Sincerely, Dr Mikey Thakur MD, [facility] - Urology Compassionate Specialist Care for the Genitourinary System Coding Level of Care Code New Pt Level 4 (58028) Diagnoses Bladder outlet obstruction N32.0 PSA elevation R97.20
== END 2025-02-03 10:11 | disposition home or self-care (01) ==
LOC: HO.HUSH 09:20
PROVIDERS: PCP Internal Medicine; Visit Provider Urology
DX: N32.0 Bladder-neck obstruction (principal); R97.20 Elevated prostate specific antigen [PSA]; Z13.9 Encounter for screening, unspecified
CPT/HCPCS: 99204

== ENCOUNTER → 2025-02-03 09:19 | Outpatient (BNVA) | payer MEDICARE, OTHER, SELFPAY | PROVIDERS: PCP Internal Medicine; Visit Provider Urology | DX: N32.0 Bladder-neck obstruction (principal); R97.20 Elevated prostate specific antigen [PSA]; Z13.9 Encounter for screening, unspecified | CPT/HCPCS: 51798; 81003; 99202 ==